=== PATIENT | male | born 1960 | race Caucasian/White ===

== ENCOUNTER 2020-05-03 01:46 | Emergency (ER) | payer OTHER, SELFPAY ==
--- NOTE | 2020-05-03 01:54 | ECG_ITS ---
Test Reason : CHEST PAIN Blood Pressure : / mmHG Vent. Rate : 058 BPM Atrial Rate : 058 BPM P-R Int : 184 ms QRS Dur : 100 ms QT Int : 420 ms P-R-T Axes : 035 017 009 degrees QTc Int : 412 ms Sinus bradycardia Incomplete right bundle branch block Borderline ECG When compared to the previous EKG of 02 july 2016, no significant changes Referred By: Laurie Ibanez Electronically Signed By:DEMARCO DIANE
--- NOTE | 2020-05-03 01:54 | CT_ITS ---
EXAMINATION: CT ABDOMEN AND PELVIS WITH CONTRAST CLINICAL INFORMATION: Epigastric pain COMPARISON: Ultrasound 10/28/2019 TECHNIQUE: Multidetector volumetric images were obtained from the superior aspect of the liver through the pubic symphysis following administration 85 mL of Omnipaque 350 intravenous contrast. Sagittal and coronal reformatted images were obtained on the technologist's workstation. Oral contrast: No This CT examination was performed using dose optimization techniques as appropriate, variously including the following: *Automated exposure control *Adjustment of mA and/or kV according to patient size (this includes techniques or standardized protocols for targeted exams where dose is matched to indication/reason for exam; i.e. extremities or head) *Use of iterative reconstruction technique DLP: 1037 mGy-cm FINDINGS: LUNG BASES: Right basilar atelectasis. The visualized cardiac structures are unremarkable. LIVER, GALLBLADDER, AND BILIARY TREE: The liver is normal in size and shape with decreased attenuation. No biliary ductal dilatation is present. There is a 1.7 cm cyst in segment 7 of the liver at the dome. The gallbladder is unremarkable with no evidence of radiopaque gallstones, gallbladder wall thickening, or obvious pericholecystic inflammatory changes. PANCREAS: There is a soft tissue mass in the retroperitoneum abutting the pancreatic head/uncinate. This could be of pancreatic origin or galileo. The mass measures 6 x 4.3 x 5.5 cm. There is lack of a fat plane between the mass in the main portal vein. There is greater than 180 degrees of abutment of the celiac axis and superior mesenteric artery. There is also loss of fat plane with the splenic vein. The pancreatic body and tail are unremarkable. No ductal dilatation. No atrophy. SPLEEN: Unremarkable. ADRENAL GLANDS: Unremarkable. KIDNEYS AND URETERS: The kidneys are normal in size, shape, and attenuation. No hydronephrosis, hydroureter, or calculi seen. No perinephric stranding. Left lower pole renal cyst. BLADDER: Unremarkable. GASTROINTESTINAL TRACT: The stomach is unremarkable. Normal caliber small bowel. There is no obstruction. No colonic wall thickening or acute inflammatory change. Colonic diverticulosis without diverticulitis. ABDOMINAL WALL: No significant hernia is appreciated. LYMPH NODES: Retroperitoneal mass as described above. Otherwise, there is no retroperitoneal lymphadenopathy. No mesenteric lymphadenopathy. VASCULAR: Normal caliber aorta. Minimal atherosclerotic calcifications. PELVIC VISCERA: The prostate and seminal vesicles are unremarkable. OSSEOUS STRUCTURES: No acute or suspicious osseous abnormality. Mild degenerative changes of the spine. CT/CT abdomen pelvis w con IMPRESSION: There is a prominent soft tissue mass in the retroperitoneum which could either be of pancreatic origin or galileo. This abuts the pancreatic head/uncinate. There is encasement of adjacent vasculature. This is highly suspicious for neoplasm. Hepatic steatosis. Cysts of the liver and left kidney. This critical result was discussed with Laurie Ibanez MD by telephone at 05/03/2020 4:35 AM and it was ascertained that the content and urgency of the report was understood at the time of direct communication.
[2020-05-03 02:07] VITALS: BP 125/69; PULSE 57; RESP 98; TEMP 36.7; BMI 23.7
[2020-05-03 03:13] VITALS: BP 113/64; PULSE 74; RESP 15; TEMP 37.1; O2SAT 98
[2020-05-03 03:27] LABS: Basophils Percent Auto 0.3 % (0-2); Eosinophils Absolute Auto 0.2 X10*3/uL (0.0-0.4); Eosinophils Percent Auto 1.4 % (0-4); Hematocrit 41.5 % (42-52); Hemoglobin 13.5 g/dl (14.0-18.0); Imm Gran Abs Auto 0.03 X10*3/uL (0.00-0.03); Imm Gran Pct Auto 0.3 % (0.0-0.4); Lymphocytes Absolute Auto 2.2 X10*3/uL (1.2-4.9); Lymphocytes Percent Auto 20.7 % (20-40); Mean Corpuscular HGB Conc 32.5 g/dl (31.0-36.0); Mean Corpuscular Hemoglobin 31.8 pg (27.0-33.0); Mean Corpuscular Volume 97.6 fL (80-98); Mean Platelet Volume 9.5 fL (9.4-12.4); Monocytes Absolute Auto 0.8 X10*3/uL (0.1-1.2); Monocytes Percent Auto 7.3 % (2-11); Neutrophils Absolute Auto 7.3 X10*3/uL (2.0-8.3); Platelet Count 264 X10*3/uL (160-400); Red Blood Count 4.25 X10*6/uL (4.60-5.80); Red Cell Distribution Width 11.9 % (11.0-16.0); White Blood Count 10.5 X10*3/uL (4.8-10.8)
[2020-05-03 03:29] LABS: MANUAL DIFF FLAG NO
--- NOTE | 2020-05-03 03:30 | XR_ITS ---
EXAMINATION: XR CHEST CLINICAL INFORMATION: Cough COMPARISON: 05/16/2017 TECHNIQUE: Frontal view of the chest was obtained. FINDINGS: Cardiac leads overlie the chest. The lungs are well expanded. There is no focal consolidation, edema, or effusion. No pneumothorax. The cardiomediastinal silhouette is within normal limits. No acute osseous abnormality. XR/XR chest 1V IMPRESSION: No acute pulmonary finding.
--- NOTE | 2020-05-03 03:40 | ED.ABDPAIN ---
HPI - Abdominal Pain General Chief Complaint: Abdominal Pain Stated Complaint: epigastric pain Time Seen by Provider: 05/03/20 01:54 Source: patient and independent living advisor Mode of arrival: EMS History of Present Illness HPI narrative: This is 60-year-old male with history of GERD, depression, who is brought in by EMS after they were called for patient having onset of right upper quadrant/epigastric sharp pain at approximately 2:30 a.m. that radiated across the abdomen was not associated with nausea, vomiting, fevers, or chills. Patient states that this is happen previously after taking a pill but denies any shortness of breath, chest pain/palpitations, urinary symptoms. He describes the pain as 12/11 Related Data Home Medications Medication Instructions Recorded Confirmed aspirin 81 mg tablet,delayed 81 mg PO DAILY 04/11/20 04/11/20 release cyclobenzaprine 10 mg tablet 10 mg PO BEDTIME 04/11/20 04/11/20 fluoxetine 20 mg capsule 20 mg PO DAILY 04/11/20 04/11/20 hydroxyzine pamoate 50 mg capsule 50 mg PO Q6H cap 04/11/20 04/11/20 nabumetone 750 mg tablet 750 mg PO BID 04/11/20 04/11/20 omega-3 fatty acids 1,000 mg 1,000 mg PO DAILY 04/11/20 04/11/20 capsule omeprazole 40 mg capsule,delayed 40 mg PO BID 04/11/20 04/11/20 release propylene glycol 0.6 % eye drops 1 drp OPHTHALMIC (EYE) DAILY PRN 04/11/20 04/11/20 quetiapine 400 mg tablet,extended 400 mg PO BEDTIME 04/11/20 04/11/20 release 24 hr triamcinolone acetonide 0.025 % 1 appl TOPICAL DAILY 04/11/20 04/11/20 topical cream Allergies Allergy/AdvReac Type Severity Reaction Status Date / Time shrimp [SHRIMP] Allergy Severe THROAT Verified 04/11/20 09:57 CLOSES Review of Systems Review of Systems Pertinent positives and negatives as stated in HPI 10 point review of systems is otherwise negative. Physical Exam Vital Signs: Vital Signs: Last Vital Signs Temp 97.8 F 05/03/20 06:26 Pulse 76 05/03/20 06:26 Resp 18 05/03/20 06:26 BP 146/74 H 05/03/20 06:26 Pulse Ox 97 05/03/20 06:26 Body Mass Index 23.7 VITAL SIGNS: Reviewed. GENERAL: Well developed, well nourished, in no acute distress. NOSE: Nares patent bilateral OROPHARYNX: no oral lesions noted, posterior pharynx clear and non-erythematous without noted tonsillar enlargement/erythema/exudates NECK: Supple, no adenopathy LUNGS: Normal breath sounds. No adventitious sounds or accessory muscle use. SpO2<98> CARDIOVASCULAR: Regular rate and rhythm without noted murmurs, no JVD or lower extremity edema. ABDOMEN: Obese, Soft, non-tender, non-distended with bowel sounds. Voluntary guarding, No rigidity, No palpable masses or hernias noted NEUROLOGIC: Alert and oriented x 4. Course Course Course Narrative: This is a 60-year-old male with history and clinical presentation suggestive of possible gastritis, gallbladder pathology, pancreatitis and will rule out cardiac or pulmonary etiologies as well. On review of all investigations there is no evidence of systemic infection, but there is a noted chronic transaminemia. Although the high sensitivity troponin is noted to be 5.2 there are no acute findings on the EKG, however will follow up a 2nd troponin. CT scan is read as a 5 cm pancreatic mass that is encasing vasculature. Case management consult placed to ensure patient has appointments with both his primary care provider as well as a surgeon at either [facility] or possibly [facility]. Reevaluation(s) Reevaluation #1: With the assistance of the analytical consultant I informed the patient of his new diagnosis in the presence of his who was on speaker phone. All questions and concerns were addressed and they understand the next steps that will be taken in terms of case management assisting in setting up appointments with both his primary care provider, Dr. Amato, as well as a surgical services tech for this type of mass. Time: 07:05 MDM - Abdominal Pain Lab Data Result diagrams: 05/03/20 03:22 05/03/20 03:21 Labs: Lab Results 05/03/20 05/03/20 05/03/20 Range/Units 03:21 03:22 03:22 WBC 10.5 (4.8-10.8) X10*3/uL RBC 4.25 L (4.60-5.80) X10*6/uL Hgb 13.5 L (14.0-18.0) g/dl Hct 41.5 L (42-52) % MCV 97.6 (80-98) fL MCH 31.8 (27.0-33.0) pg MCHC 32.5 (31.0-36.0) g/dl RDW 11.9 (11.0-16.0) % Plt Count 264 (160-400) X10*3/uL MPV 9.5 (9.4-12.4) fL Immature Gran % (Auto) 0.3 (0.0-0.4) % Neut % (Auto) 70.0 (45-73) % Lymph % (Auto) 20.7 (20-40) % [place] % (Auto) 7.3 (2-11) % Eos % (Auto) 1.4 (0-4) % Baso % (Auto) 0.3 (0-2) % Lymph # (Auto) 2.2 (1.2-4.9) X10*3/uL [place] # (Auto) 0.8 (0.1-1.2) X10*3/uL Eos # (Auto) 0.2 (0.0-0.4) X10*3/uL Baso # (Auto) 0.0 (0.0-0.2) X10*3/uL Abs Immat Gran (auto) 0.03 (0.00-0.03) X10*3/uL Absolute Neuts (auto) 7.3 (2.0-8.3) X10*3/uL Absolute Nucleated RBC 0.000 (0.0-0.012) X10*3/uL Nucleated RBC % (auto) 0.0 (0.0-0.2) /100WBC Sodium 136 (135-145) mmol/L Potassium 3.9 (3.3-5.1) mmol/l Chloride 99 (96-108) mmol/L Carbon Dioxide 30 H (22-29) mmol/L Anion Gap 11 L (12-20) BUN 12 (9-16) mg/dL Creatinine 0.93 (0.5-1.4) mg/dL Estim Creat Clear Calc 81.7 Estimated GFR > 60 Random Glucose 194 H (60-115) mg/dL Calcium 9.1 (8.4-10.2) mg/dL Magnesium 2.0 (1.6-2.6) mg/dL Total Bilirubin 0.6 (0.0-1.0) mg/dL AST 67 H (5-37) U/L ALT 87 H (0-40) U/L Alkaline Phosphatase 121 H (39-117) U/L Troponin I High Sens 5.2 (<3.5-35.0) ng/L Total Protein 7.0 (6.5-8.0) g/dL Albumin 3.7 (3.5-5.0) g/dL Lipase 15 (8-78) U/L ECG Data Attestation: I personally reviewed and interpreted this ECG as follows: Prior ECG tracings: available for review (07/02/2016) Interpretation: Sinus bradycardia, HR-58, no evidence of acute ischemia, DE/QTC are within normal limits. Discharge Plan Discharge Clinical Impression: Pancreatic mass Patient Disposition: Home, Self-Care Additional Instructions: Please do not hesitate to return to the emergency department for any acute worsening of your symptoms. Prescriptions: No Action Systane Balance 0.6 % drops 1 drp ophthalmic (eye) DAILY PRNRF: 0 nabumetone 750 mg tablet 750 mg PO BID RF: 0 omeprazole 40 mg capsule,delayed release(DR/EC) 40 mg PO BID RF: 0 triamcinolone acetonide 0.025 % cream 1 appl topical DAILY RF: 0 aspirin [Adult Aspirin Regimen] 81 mg tablet,delayed release (DR/EC) 81 mg PO DAILY RF: 0 quetiapine 400 mg tablet extended release 24 hr 400 mg PO BEDTIME RF: 0 fluoxetine 20 mg capsule 20 mg PO DAILY RF: 0 hydroxyzine pamoate 50 mg capsule 50 mg PO Q6H RF: 0 cyclobenzaprine 10 mg tablet 10 mg PO BEDTIME RF: 0 omega-3 fatty acids [Fish Oil Concentrate] 1,000 mg capsule 1,000 mg PO DAILY RF: 0 Referrals: Keke Barnes MD [Physician] - 2 days (Co management of patient with new diagnosis pancreatic mass.) Print Language: Hebrew [facility] Past Medical History Source: nursing notes reviewed Medical History Depression with anxiety Diverticulosis GERD (gastroesophageal reflux disease) High serum ferritin Impaired glucose tolerance Transaminitis Surgical History History of tonsillectomy Family History Family History Father No problems noted. Mother No problems noted. Maternal Grandmother Diabetes Hypertension Stroke Maternal Grandfather CVD (cardiovascular disease) Maternal Aunt Chronic mental illness Maternal Aunt Psychosis Family/Other FH: mental illness Social History Social History Smoking Status: Current every day smoker Smoked in Last 30 Days: No Use of substances other than those prescribed or required for medical reasons: No Advance Directives: No
[2020-05-03 03:55] LABS: Alanine Aminotransferase 87 U/L (0-40); Albumin Level 3.7 g/dL (3.5-5.0); Alkaline Phosphatase 121 U/L (39-117); Anion Gap 11 (12-20); Aspartate Amino Transferase 67 U/L (5-37); Bilirubin Total 0.6 mg/dL (0.0-1.0); Blood Urea Nitrogen 12 mg/dL (9-16); Calcium 9.1 mg/dL (8.4-10.2); Carbon Dioxide 30 mmol/L (22-29); Chloride 99 mmol/L (96-108); Creatinine Clr Calc Pharmacy 81.7; Estimated Glomerular Filt Rate > 60; Glucose Random 194 mg/dL (60-115); Lipase 15 U/L (8-78); Potassium 3.9 mmol/l (3.3-5.1); Sodium 136 mmol/L (135-145)
[2020-05-03 03:59] LABS: Troponin-I High Sensitivity 5.2 ng/L (<3.5-35.0)
[2020-05-03] MEDS: iohexoL 350 MG/ML 100 ML INFUS..BTL 85 ML IV (04:18)
[2020-05-03 04:29] VITALS: BP 130/59; PULSE 85; RESP 16; TEMP 36.6; O2SAT 94
[2020-05-03 06:26] VITALS: BP 146/74; PULSE 76; RESP 18; TEMP 36.6; O2SAT 97
[2020-05-03 07:20] LABS: Troponin-I High Sensitivity 4.3 ng/L (<3.5-35.0)
[2020-05-03 07:44] VITALS: BP 127/72; PULSE 82; RESP 16; TEMP 36.6; O2SAT 97
--- NOTE | 2020-05-03 09:00 | MHC.CM.ED ---
Received case management consult overnight. Patient came to the ER due to elevated LFT's. Work up shows a pancreatic mass. Follow up care has been requested from MD. Patient's PCP is Dr Lm Gómez. She is on vacation next week. Office was able to arrange an appointment with Dr Ramires on 05/07/2020 at 230pm. ER provider documentation and CT faxed to PCP's office. 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 Patient lives with his , ambulates with a cane and had no services prior to coming to the hospital. Patient denies having a HCP. Information provided. Patient not interested in completing one at this time. Appointment information provided. Also explained PCP's office will arrange follow up with necessary surgeon. Patient verbalized understanding and stated his daughter will transport him home. Patient stated he feels he can safely go home. LAZARO Avalos and ELISA Jolley aware. Continue to monitor for d/c needs.
== END 2020-05-03 09:46 | disposition home or self-care (01) ==
PROVIDERS: Emergency Provider Student in an Organized Health Care Education/Training Program
DX: K86.9 Disease of pancreas, unspecified (principal); R10.13 Epigastric pain; Z79.899 Other long term (current) drug therapy; F17.200 Nicotine dependence, unspecified, uncomplicated; Z71.6 Tobacco abuse counseling
CPT/HCPCS: 36415; 71045; 74177; 80053; 83690; 83735; 84484; 85025; 93005; 99284; Q9967

== ENCOUNTER 2020-05-10 13:32 | Outpatient (REF) | payer OTHER, SELFPAY | END 2020-05-10 13:33 | disposition home or self-care (01) | LOC: HO.LAB 13:32 | PROVIDERS: PCP Internal Medicine; Visit Provider Internal Medicine | DX: Z20.828 Contact with and (suspected) exposure to other viral communicable diseases (principal) | CPT/HCPCS: 36415; C9803; U0003 ==

== ENCOUNTER 2020-05-16 08:12 | Outpatient (REF) | payer OTHER, SELFPAY ==
[2020-05-16 09:55] LABS: MANUAL DIFF FLAG NO
[2020-05-16 10:08] LABS: Basophils Absolute Auto 0.1 X10*3/uL (0.0-0.2); Basophils Percent Auto 0.7 % (0-2); Eosinophils Absolute Auto 0.3 X10*3/uL (0.0-0.4); Eosinophils Percent Auto 3.7 % (0-4); Hematocrit 43.9 % (42-52); Hemoglobin 14.5 g/dl (14.0-18.0); Imm Gran Abs Auto 0.03 X10*3/uL (0.00-0.03); Imm Gran Pct Auto 0.4 % (0.0-0.4); Lymphocytes Absolute Auto 2.6 X10*3/uL (1.2-4.9); Mean Corpuscular Hemoglobin 32.1 pg (27.0-33.0); Mean Corpuscular Volume 97.1 fL (80-98); Mean Platelet Volume 10.8 fL (9.4-12.4); Monocytes Absolute Auto 0.6 X10*3/uL (0.1-1.2); Monocytes Percent Auto 6.7 % (2-11); Neutrophils Absolute Auto 4.8 X10*3/uL (2.0-8.3); Neutrophils Percent Auto 57.5 % (45-73); Platelet Count 335 X10*3/uL (160-400); Red Blood Count 4.52 X10*6/uL (4.60-5.80); Red Cell Distribution Width 11.7 % (11.0-16.0); White Blood Count 8.3 X10*3/uL (4.8-10.8)
[2020-05-16 10:57] LABS: Alanine Aminotransferase 86 U/L (0-40); Alkaline Phosphatase 136 U/L (39-117); Anion Gap 15 (12-20); Aspartate Amino Transferase 51 U/L (5-37); Bilirubin Total 0.7 mg/dL (0.0-1.0); Blood Urea Nitrogen 9 mg/dL (9-16); Calcium 8.9 mg/dL (8.4-10.2); Carbon Dioxide 29 mmol/L (22-29); Chloride 101 mmol/L (96-108); Estimated Glomerular Filt Rate > 60; Glucose Fasting 122 mg/dL (60-99); Iron 137 mcg/dL (45-160); Percent Iron Saturation 49 % (15-50); Potassium 4.5 mmol/l (3.3-5.1); Sodium 140 mmol/L (135-145); Total Iron Binding Capacity 281 mcg/dL (228-428); Total Protein 7.4 g/dL (6.5-8.0); Unsaturated Iron Binding 144 ug/dL
[2020-05-16 11:14] LABS: HBS Num1 0.05 mIU/mL (0-7.99); HBc Num1 0.37 S/CO (0.00-0.79); Hepatitis B Core Antibody Nonreactive (Nonreactive); ~HepC Num1 0.19 S/CO (0.00-0.79); ~Hepatitis B Surface Antibody NONREACTIVE (Nonreactive); ~Hepatitis C Antibody Nonreactive (Nonreactive)
[2020-05-16 11:18] LABS: Ferritin 597 ng/mL (20-250)
[2020-05-16 11:29] LABS: HBsAGNum1 0.17 S/CO (0.00-0.99); Hepatitis A Antibody IgM 0.36 Index (0-0.79); Hepatitis B Surface Antigen Negative (Negative); ~Hepatitis A Antibody IgM Nonreactive (Nonreactive)
== END 2020-05-16 08:13 | disposition home or self-care (01) ==
LOC: HO.LAB 08:12
PROVIDERS: PCP Internal Medicine; Visit Provider Internal Medicine
DX: R79.89 Other specified abnormal findings of blood chemistry (principal); R73.02 Impaired glucose tolerance (oral); R74.01 Elevation of levels of liver transaminase levels
CPT/HCPCS: 36415; 80053; 81256; 82728; 83540; 85025; 86704; 86706; 86709; 86803; 87340

== ENCOUNTER → 2020-05-17 09:31 | Outpatient (BNVA) | payer OTHER, SELFPAY | PROVIDERS: PCP Internal Medicine; Visit Provider Surgery | DX: K86.89 Other specified diseases of pancreas (principal) | CPT/HCPCS: 99202 ==

== ENCOUNTER 2020-05-28 10:30 | Outpatient (REF) | payer OTHER, SELFPAY | END 2020-05-28 10:31 | disposition home or self-care (01) | LOC: HO.LAB 10:30 | PROVIDERS: Visit Provider Internal Medicine | DX: Z20.822 Contact with and (suspected) exposure to COVID-19 (principal) | CPT/HCPCS: 36415; C9803; U0003 ==

== ENCOUNTER → 2020-06-28 10:19 | Outpatient (BNVA) | payer OTHER, SELFPAY | PROVIDERS: PCP Internal Medicine; Referring Provider Internal Medicine; Visit Provider Internal Medicine Gastroenterology ==

== ENCOUNTER → 2020-07-04 09:44 | Outpatient (BNVA) | payer OTHER, SELFPAY | PROVIDERS: PCP Internal Medicine; Visit Provider Physician Assistant | DX: M75.80 Other shoulder lesions, unspecified shoulder (principal) | CPT/HCPCS: 20610; 99212; J1020 ==

== ENCOUNTER 2020-07-17 09:55 | Outpatient (REF) | payer OTHER, SELFPAY ==
[2020-07-17 11:27] LABS: Alanine Aminotransferase 18 U/L (0-40); Albumin Level 4.1 g/dL (3.5-5.0); Alkaline Phosphatase 146 U/L (39-117); Anion Gap 12 (12-20); Aspartate Amino Transferase 19 U/L (5-37); Bilirubin Total 0.9 mg/dL (0.0-1.0); Blood Urea Nitrogen 11 mg/dL (9-16); Calcium 9.3 mg/dL (8.4-10.2); Carbon Dioxide 34 mmol/L (22-29); Chloride 101 mmol/L (96-108); Estimated Glomerular Filt Rate > 60; Glucose Fasting 104 mg/dL (60-99); Potassium 5.2 mmol/L (3.3-5.1); Sodium 142 mmol/L (135-145); Total Protein 7.5 g/dL (6.5-8.0)
== END 2020-07-17 09:56 | disposition home or self-care (01) ==
LOC: HO.LAB 09:55
PROVIDERS: PCP Internal Medicine; Visit Provider Internal Medicine
DX: R73.02 Impaired glucose tolerance (oral) (principal)
CPT/HCPCS: 36415; 80053

== ENCOUNTER 2020-10-05 09:20 | Emergency (ER) | payer OTHER, SELFPAY ==
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
[2020-10-05 09:38] VITALS: BP 121/90; PULSE 99; RESP 18; TEMP 36.8; O2SAT 96; BMI 39.5
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
[2020-10-05 14:00] VITALS: BP 122/89; PULSE 89; RESP 18; O2SAT 96
--- NOTE | 2020-10-05 14:10 | PC.NURSE ---
waiting to interperter for dc
== END 2020-10-05 14:34 | disposition home or self-care (01) ==
PROVIDERS: Emergency Provider Emergency Medicine Emergency Medical Services; PCP Internal Medicine
DX: S13.4XXA Sprain of ligaments of cervical spine, initial encounter (principal); S43.402A Unspecified sprain of left shoulder joint, initial encounter; V43.52XA Car driver injured in collision with other type car in traffic accident, initial encounter; Y93.89 Activity, other specified; Y92.414 Local residential or business street as the place of occurrence of the external cause; Y99.9 Unspecified external cause status
CPT/HCPCS: 70450; 71045; 72125; 73030; 99284

== ENCOUNTER → 2020-10-25 08:04 | Outpatient (BNVA) | payer OTHER, SELFPAY | PROVIDERS: PCP Internal Medicine; Referring Provider Internal Medicine; Visit Provider Internal Medicine Gastroenterology | DX: K76.0 Fatty (change of) liver, not elsewhere classified (principal); K86.89 Other specified diseases of pancreas; K21.9 Gastro-esophageal reflux disease without esophagitis; K57.90 Diverticulosis of intestine, part unspecified, without perforation or abscess without bleeding; R74.01 Elevation of levels of liver transaminase levels; R79.89 Other specified abnormal findings of blood chemistry; C82.89 Other types of follicular lymphoma, extranodal and solid organ sites; Z86.010 Personal history of colon polyps | CPT/HCPCS: 99212 ==

== ENCOUNTER 2020-12-17 11:40 | Outpatient (REF) | payer OTHER, SELFPAY | END 2020-12-17 11:41 | disposition home or self-care (01) | LOC: HO.LAB 11:40 | PROVIDERS: PCP Internal Medicine; Visit Provider Internal Medicine | DX: Z20.822 Contact with and (suspected) exposure to COVID-19 (principal) | CPT/HCPCS: C9803; U0003; U0005 ==

== ENCOUNTER 2021-01-21 08:29 | Outpatient (REF) | payer OTHER, SELFPAY | END 2021-01-21 08:30 | disposition home or self-care (01) | LOC: HO.LAB 08:29 | PROVIDERS: PCP Internal Medicine; Visit Provider Internal Medicine | DX: Z20.822 Contact with and (suspected) exposure to COVID-19 (principal) | CPT/HCPCS: C9803; U0003; U0005 ==

== ENCOUNTER → 2021-01-23 13:03 | Outpatient (REF) | payer OTHER, SELFPAY | LOC: HO.SL 13:03 | PROVIDERS: PCP Internal Medicine; Visit Provider Internal Medicine | DX: R40.0 Somnolence (principal) | CPT/HCPCS: 95806 ==

== ENCOUNTER → 2021-02-12 11:09 | Outpatient (BNVA) | payer OTHER, SELFPAY | PROVIDERS: PCP Internal Medicine; Visit Provider Internal Medicine Pulmonary Disease | DX: G47.33 Obstructive sleep apnea (adult) (pediatric) (principal) | CPT/HCPCS: 99202 ==

== ENCOUNTER → 2021-02-28 08:21 | Outpatient (BNVA) | payer OTHER, SELFPAY | PROVIDERS: PCP Internal Medicine; Referring Provider Internal Medicine; Visit Provider Internal Medicine Gastroenterology | DX: K76.0 Fatty (change of) liver, not elsewhere classified (principal); K86.89 Other specified diseases of pancreas; K21.9 Gastro-esophageal reflux disease without esophagitis; K57.90 Diverticulosis of intestine, part unspecified, without perforation or abscess without bleeding; E66.01 Morbid (severe) obesity due to excess calories; R74.01 Elevation of levels of liver transaminase levels; C82.89 Other types of follicular lymphoma, extranodal and solid organ sites; Z86.010 Personal history of colon polyps | CPT/HCPCS: 99212 ==

== ENCOUNTER 2021-05-21 08:53 | Outpatient (REF) | payer OTHER, SELFPAY ==
[2021-05-21 09:18] LABS: Hematocrit 38.7 % (42.0-52.0); Hemoglobin 12.6 g/dl (14.0-18.0); Mean Corpuscular HGB Conc 32.6 g/dl (31.0-36.0); Mean Corpuscular Hemoglobin 32.4 pg (27.0-33.0); Mean Corpuscular Volume 99.5 fL (80.0-98.0); Mean Platelet Volume 8.9 fL (9.4-12.4); Platelet Count 282 X10*3/uL (160-400); Red Blood Count 3.89 X10*6/uL (4.60-5.80); Red Cell Distribution Width 12.2 % (11.0-16.0); White Blood Count 4.5 X10*3/uL (4.8-10.8)
[2021-05-21 09:45] LABS: Alanine Aminotransferase 47 U/L (0-40); Alkaline Phosphatase 134 U/L (39-117); Anion Gap 12 (12-20); Aspartate Amino Transferase 56 U/L (5-37); Bilirubin Total 0.5 mg/dL (0.0-1.0); Blood Urea Nitrogen 11 mg/dL (9-16); Calcium 9.5 mg/dL (8.4-10.2); Carbon Dioxide 32 mmol/L (22-29); Chloride 102 mmol/L (96-108); Cholesterol 182 mg/dL; Estimated Glomerular Filt Rate > 60; Glucose Fasting 148 mg/dL (60-99); HDL Cholesterol 36 mg/dL; LDL Cholesterol Calculated 105 mg/dl; Sodium 141 mmol/L (135-145); Total Protein 7.2 g/dL (6.5-8.0); Triglycerides 208 mg/dL
[2021-05-21 10:50] LABS: Band Neutrophils Percent 1 % (3-5); Basophils Percent Manual 1 % (0-2); Eosinophils Absolute Manual 0.1 X10*3/uL (0.0-0.4); Eosinophils Percent Manual 2 % (0-4); Hypochromasia 1+ (5-14) /OIF; Lymphocytes Absolute Manual 0.3 X10*3/uL (1.2-4.9); Lymphocytes Percent Manual 6 % (20-40); Monocytes Absolute Manual 0.4 X10*3/uL (0.1-1.2); Monocytes Percent Manual 9 % (2-11); Neutrophils Absolute Manual 3.7 X10*3/uL (2.0-8.3); Neutrophils Percent Manual 81 % (45-73); Platelet Estimate NORMAL (NORMAL); Platelet Morphology Comment NORMAL; RBC Morphology NOTED
== END 2021-05-21 08:54 | disposition home or self-care (01) ==
LOC: HO.LAB 08:53
PROVIDERS: PCP Internal Medicine; Visit Provider Internal Medicine
DX: E66.01 Morbid (severe) obesity due to excess calories (principal); E78.5 Hyperlipidemia, unspecified; D64.9 Anemia, unspecified
CPT/HCPCS: 36415; 80053; 80061; 85007; 85027

== ENCOUNTER → 2021-08-29 07:59 | Outpatient (BNVA) | payer OTHER, SELFPAY | PROVIDERS: PCP Internal Medicine; Referring Provider Internal Medicine; Visit Provider Internal Medicine Gastroenterology | DX: K21.9 Gastro-esophageal reflux disease without esophagitis (principal); K76.0 Fatty (change of) liver, not elsewhere classified; R79.89 Other specified abnormal findings of blood chemistry; R74.01 Elevation of levels of liver transaminase levels; K57.90 Diverticulosis of intestine, part unspecified, without perforation or abscess without bleeding; E66.01 Morbid (severe) obesity due to excess calories; Z68.39 Body mass index [BMI] 39.0-39.9, adult; Z86.010 Personal history of colon polyps | CPT/HCPCS: 99212 ==

== ENCOUNTER → 2021-10-07 13:48 | Outpatient (BNVA) | payer OTHER, SELFPAY | PROVIDERS: PCP Internal Medicine; Visit Provider Internal Medicine Pulmonary Disease | DX: G47.33 Obstructive sleep apnea (adult) (pediatric) (principal); Z99.89 Dependence on other enabling machines and devices | CPT/HCPCS: 99212 ==

== ENCOUNTER 2022-01-07 07:43 | Outpatient (REF) | payer OTHER, SELFPAY ==
--- NOTE | 2022-01-07 07:58 | ECG_ITS ---
Test Reason : qt check Blood Pressure : / mmHG Vent. Rate : 074 BPM Atrial Rate : 074 BPM P-R Int : 180 ms QRS Dur : 098 ms QT Int : 388 ms P-R-T Axes : 031 -02 014 degrees QTc Int : 430 ms Normal sinus rhythm Normal ECG When compared with ECG of 03-MAY-2020 01:57, No significant change was found Referred By: Luis Alberto Carter Electronically Signed By:JOEY SILVA
[2022-01-07 08:14] LABS: MANUAL DIFF FLAG NO
[2022-01-07 08:49] LABS: Basophils Percent Auto 0.6 % (0-2); Eosinophils Absolute Auto 0.2 X10*3/uL (0.0-0.4); Eosinophils Percent Auto 3.7 % (0-4); Hematocrit 39.2 % (42.0-52.0); Imm Gran Abs Auto 0.03 X10*3/uL (0.00-0.03); Imm Gran Pct Auto 0.6 % (0.0-0.4); Lymphocytes Absolute Auto 1.4 X10*3/uL (1.2-4.9); Lymphocytes Percent Auto 25.3 % (20-40); Mean Corpuscular HGB Conc 33.2 g/dl (31.0-36.0); Mean Corpuscular Volume 99.5 fL (80.0-98.0); Mean Platelet Volume 9.2 fL (9.4-12.4); Monocytes Absolute Auto 0.4 X10*3/uL (0.1-1.2); Monocytes Percent Auto 7.2 % (2-11); Neutrophils Absolute Auto 3.4 x10*3/uL (2.0-8.3); Neutrophils Percent Auto 62.6 % (45-73); Platelet Count 296 X10*3/uL (160-400); Red Blood Count 3.94 X10*6/uL (4.60-5.80); White Blood Count 5.4 X10*3/uL (4.8-10.8)
[2022-01-07 09:25] LABS: Estimated Average Glucose 123 mg/dL; Hemoglobin A1c % 5.9 %
[2022-01-07 09:27] LABS: Alanine Aminotransferase 64 U/L (0-40); Albumin Level 3.9 g/dL (3.5-5.0); Alkaline Phosphatase 131 U/L (39-117); Anion Gap 14 (12-20); Aspartate Amino Transferase 45 U/L (5-37); Bilirubin Total 0.5 mg/dL (0.0-1.0); Blood Urea Nitrogen 11 mg/dL (9-16); Carbon Dioxide 30 mmol/L (22-29); Chloride 103 mmol/L (96-108); Estimated Glomerular Filt Rate > 60; Glucose Random 141 mg/dL (60-115); Potassium 4.8 mmol/L (3.3-5.1); Sodium 142 mmol/L (135-145); Total Protein 7.6 g/dL (6.5-8.0)
[2022-01-07 09:30] LABS: Alanine Aminotransferase 64 U/L (0-40); Albumin Level 3.9 g/dL (3.5-5.0); Alkaline Phosphatase 130 U/L (39-117); Anion Gap 15 (12-20); Aspartate Amino Transferase 46 U/L (5-37); Bilirubin Total 0.5 mg/dL (0.0-1.0); Blood Urea Nitrogen 11 mg/dL (9-16); Calcium 8.9 mg/dL (8.4-10.2); Carbon Dioxide 28 mmol/L (22-29); Chloride 102 mmol/L (96-108); Cholesterol 178 mg/dL; Estimated Glomerular Filt Rate > 60; Glucose Fasting 137 mg/dL (60-99); HDL Cholesterol 41 mg/dL; LDL Cholesterol Calculated 109 mg/dl; Potassium 4.3 mmol/L (3.3-5.1); Sodium 141 mmol/L (135-145); Total Protein 7.6 g/dL (6.5-8.0); Triglycerides 144 mg/dL
[2022-01-07 09:40] LABS: Vitamin D 25-OH Total 18.4 ng/mL (>30)
[2022-01-08 11:07] LABS: Prolactin 9.1 ng/mL (2.0-18.0)
[2022-01-08 11:18] LABS: Syphilis Screen Nonreactive (Nonreactive)
[2022-01-10 12:27] LABS: Vitamin B1 6 nmol/L (8-30)
== END 2022-01-07 07:44 | disposition home or self-care (01) ==
LOC: HO.LAB 07:43
PROVIDERS: PCP Internal Medicine; Visit Provider Psychiatry & Neurology Child & Adolescent Psychiatry
DX: Z00.00 Encounter for general adult medical examination without abnormal findings (principal); E55.9 Vitamin D deficiency, unspecified; E66.9 Obesity, unspecified; C82.89 Other types of follicular lymphoma, extranodal and solid organ sites; F43.10 Post-traumatic stress disorder, unspecified; F43.21 Adjustment disorder with depressed mood
CPT/HCPCS: 36415; 80053; 80061; 82306; 82746; 83036; 84146; 84425; 84443; 85025; 86780; 93005

== ENCOUNTER 2022-02-06 07:28 | Outpatient (REF) | payer OTHER, SELFPAY ==
[2022-02-06 08:10] LABS: MANUAL DIFF FLAG NO
[2022-02-06 08:47] LABS: Basophils Absolute Auto 0.1 X10*3/uL (0.0-0.2); Basophils Percent Auto 0.8 % (0-2); Eosinophils Absolute Auto 0.2 X10*3/uL (0.0-0.4); Eosinophils Percent Auto 3.2 % (0-4); Hematocrit 39.5 % (42.0-52.0); Hemoglobin 12.9 g/dl (14.0-18.0); Imm Gran Abs Auto 0.02 X10*3/uL (0.00-0.03); Imm Gran Pct Auto 0.3 % (0.0-0.4); Lymphocytes Absolute Auto 1.3 X10*3/uL (1.2-4.9); Mean Corpuscular HGB Conc 32.7 g/dl (31.0-36.0); Mean Corpuscular Hemoglobin 31.8 pg (27.0-33.0); Mean Corpuscular Volume 97.3 fL (80.0-98.0); Mean Platelet Volume 9.1 fL (9.4-12.4); Monocytes Absolute Auto 0.4 X10*3/uL (0.1-1.2); Monocytes Percent Auto 7.1 % (2-11); Neutrophils Absolute Auto 4.2 x10*3/uL (2.0-8.3); Neutrophils Percent Auto 67.6 % (45-73); Platelet Count 287 X10*3/uL (160-400); Red Blood Count 4.06 X10*6/uL (4.60-5.80); White Blood Count 6.2 X10*3/uL (4.8-10.8)
[2022-02-06 09:03] LABS: Alanine Aminotransferase 35 U/L (0-40); Albumin Level 4.1 g/dL (3.5-5.0); Alkaline Phosphatase 135 U/L (39-117); Anion Gap 14 (12-20); Aspartate Amino Transferase 32 U/L (5-37); Bilirubin Total 0.7 mg/dL (0.0-1.0); Blood Urea Nitrogen 14 mg/dL (9-16); Calcium 9.4 mg/dL (8.4-10.2); Carbon Dioxide 31 mmol/L (22-29); Chloride 100 mmol/L (96-108); Cholesterol 193 mg/dL; Estimated Glomerular Filt Rate > 60; Glucose Random 142 mg/dL (60-115); HDL Cholesterol 40 mg/dL; LDL Cholesterol Calculated 124 mg/dl; Potassium 4.2 mmol/L (3.3-5.1); Sodium 141 mmol/L (135-145); Total Protein 7.6 g/dL (6.5-8.0); Triglycerides 148 mg/dL
[2022-02-06 09:14] LABS: Estimated Average Glucose 120 mg/dL; Hemoglobin A1c % 5.8 %
[2022-02-06 09:28] LABS: Thyroid Stimulating Hormone 2.71 uIU/mL (0.32-4.0)
[2022-02-06 10:10] LABS: Folate 13.4 ng/mL (> or = 4.0)
[2022-02-10 09:07] LABS: Vitamin B1 11 nmol/L (8-30)
== END 2022-02-06 07:29 | disposition home or self-care (01) ==
LOC: HO.LAB 07:28
PROVIDERS: PCP Internal Medicine; Visit Provider Psychiatry & Neurology Child & Adolescent Psychiatry
DX: F43.10 Post-traumatic stress disorder, unspecified (principal); F33.42 Major depressive disorder, recurrent, in full remission
CPT/HCPCS: 36415; 80053; 80061; 82746; 83036; 84146; 84425; 84443; 85025

== ENCOUNTER → 2022-02-27 08:13 | Outpatient (BNVA) | payer OTHER, SELFPAY | PROVIDERS: PCP Internal Medicine; Visit Provider Internal Medicine Gastroenterology | DX: K57.90 Diverticulosis of intestine, part unspecified, without perforation or abscess without bleeding (principal); R74.8 Abnormal levels of other serum enzymes; K76.0 Fatty (change of) liver, not elsewhere classified; K86.89 Other specified diseases of pancreas; K21.9 Gastro-esophageal reflux disease without esophagitis; R79.89 Other specified abnormal findings of blood chemistry; R74.01 Elevation of levels of liver transaminase levels; Z86.010 Personal history of colon polyps | CPT/HCPCS: 99212 ==

== ENCOUNTER 2022-06-11 08:30 | Outpatient (REF) | payer OTHER, SELFPAY ==
--- NOTE | 2022-06-11 08:34 | EMG_ITS ---
Please see scanned EMG / Nerve Conduction Report. MTDD
== END 2022-06-11 08:31 | disposition home or self-care (01) ==
LOC: HO.NEURO 08:30
PROVIDERS: PCP Internal Medicine; Visit Provider Internal Medicine
DX: R20.0 Anesthesia of skin (principal)
CPT/HCPCS: 95885; 95910

== ENCOUNTER 2022-06-30 10:57 | Outpatient (REF) | payer OTHER, SELFPAY ==
--- NOTE | ~2022-06-30 | XR_ITS ---
EXAMINATION: XR KNEE STANDING, BILATERAL XR KNEE, RIGHT CLINICAL INFORMATION: Pain in right knee. COMPARISON: None TECHNIQUE: AP bilateral knee standing. Right knee 2 views. FINDINGS: AP BILATERAL KNEE: There is mild reduction in medial compartment joint space both knees. The lateral compartment joint space is maintained normal. No bony erosive changes. No loose body seen. RIGHT KNEE: The lateral and patellofemoral views reveal maintained joint space. There is periarticular spurring. No loose bodies. No abnormal joint effusion. XR/XR knee standing BI IMPRESSION: Mild degenerative changes medial compartment both knees and patellofemoral compartment right knee. No visible acute fracture, dislocation or subluxation seen.
--- NOTE | ~2022-06-30 | XR_ITS ---
EXAMINATION: XR KNEE STANDING, BILATERAL XR KNEE, RIGHT CLINICAL INFORMATION: Pain in right knee. COMPARISON: None TECHNIQUE: AP bilateral knee standing. Right knee 2 views. FINDINGS: AP BILATERAL KNEE: There is mild reduction in medial compartment joint space both knees. The lateral compartment joint space is maintained normal. No bony erosive changes. No loose body seen. RIGHT KNEE: The lateral and patellofemoral views reveal maintained joint space. There is periarticular spurring. No loose bodies. No abnormal joint effusion. XR/XR knee RT 2V IMPRESSION: Mild degenerative changes medial compartment both knees and patellofemoral compartment right knee. No visible acute fracture, dislocation or subluxation seen.
== END 2022-06-30 10:58 | disposition home or self-care (01) ==
LOC: HO.HOSX 10:57
PROVIDERS: Visit Provider Physician Assistant
DX: M17.11 Unilateral primary osteoarthritis, right knee (principal)
CPT/HCPCS: 20610; 73560; 73565; 99212; J1040

== ENCOUNTER 2022-07-23 07:41 | Outpatient (REF) | payer OTHER, SELFPAY ==
--- NOTE | ~2022-07-23 | XR_ITS ---
EXAMINATION: XR SHOULDER, RIGHT CLINICAL INFORMATION: M25.511 - Pain in right shoulder COMPARISON: Radiographs right shoulder 06/28/2018 TECHNIQUE: Right shoulder is imaged in 3 views. FINDINGS: No fracture, dislocation, destructive process. The acromioclavicular alignment is normal. No visible rotator cuff calcifications. Again, there are moderate osteoarthritic changes right glenohumeral joint with joint narrowing and spurring, osteophyte greatest inferomedial humeral head. XR/XR shoulder RT min 2V IMPRESSION: Osteoarthritis glenohumeral joint, similar to 2019 No visible rotator cuff calcifications.
== END 2022-07-23 07:42 | disposition home or self-care (01) ==
LOC: HO.HOSX 07:41
PROVIDERS: Visit Provider Physician Assistant
DX: M19.011 Primary osteoarthritis, right shoulder (principal)
CPT/HCPCS: 20610; 73030; 99212; J1040

== ENCOUNTER → 2022-08-07 08:24 | Outpatient (BNVA) | payer OTHER, SELFPAY | PROVIDERS: PCP Internal Medicine; Visit Provider Internal Medicine Gastroenterology | DX: K76.0 Fatty (change of) liver, not elsewhere classified (principal); K86.89 Other specified diseases of pancreas; K21.9 Gastro-esophageal reflux disease without esophagitis; K57.90 Diverticulosis of intestine, part unspecified, without perforation or abscess without bleeding; R79.89 Other specified abnormal findings of blood chemistry; R74.01 Elevation of levels of liver transaminase levels; Z86.010 Personal history of colon polyps | CPT/HCPCS: 99212 ==

== ENCOUNTER 2022-12-10 09:55 | Outpatient (AMB) | payer OTHER, SELFPAY ==
[2022-12-10 09:58] VITALS: BMI 38.8
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
== END 2022-12-10 10:43 | disposition home or self-care (01) ==
PROVIDERS: PCP Internal Medicine; Visit Provider Physician Assistant
DX: M19.011 Primary osteoarthritis, right shoulder (principal)
CPT/HCPCS: 20610; 99213

== ENCOUNTER → 2022-12-10 09:55 | Outpatient (BNVA) | payer OTHER, SELFPAY | PROVIDERS: PCP Internal Medicine; Visit Provider Physician Assistant | DX: M17.11 Unilateral primary osteoarthritis, right knee (principal) | CPT/HCPCS: 20610; 99212; J1040 ==

== ENCOUNTER → 2023-01-12 08:00 | Outpatient (REF) | payer OTHER, SELFPAY ==
--- NOTE | 2023-01-12 08:04 | ECG_ITS ---
Test Reason : qtc check Blood Pressure : / mmHG Vent. Rate : 075 BPM Atrial Rate : 075 BPM P-R Int : 172 ms QRS Dur : 092 ms QT Int : 372 ms P-R-T Axes : 042 -03 007 degrees QTc Int : 415 ms Normal sinus rhythm Normal ECG When compared with ECG of 07-JAN-2022 07:58, No significant change was found Referred By: Luis Alberto Carter Electronically Signed By:JOEY SILVA
== END ==
LOC: HO.CARD 08:00
PROVIDERS: PCP Internal Medicine; Visit Provider Psychiatry & Neurology Child & Adolescent Psychiatry
DX: Z13.6 Encounter for screening for cardiovascular disorders (principal)
CPT/HCPCS: 93005

== ENCOUNTER 2023-02-05 08:34 | Outpatient (AMB) | payer OTHER, SELFPAY ==
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
[2023-02-05 08:48] VITALS: BP 127/70; PULSE 91; BMI 38.8
== END 2023-02-05 09:53 | disposition home or self-care (01) ==
PROVIDERS: PCP Internal Medicine; Visit Provider Internal Medicine Gastroenterology
DX: R74.8 Abnormal levels of other serum enzymes (principal); K76.0 Fatty (change of) liver, not elsewhere classified; Z86.010 Personal history of colon polyps; K86.89 Other specified diseases of pancreas; K21.9 Gastro-esophageal reflux disease without esophagitis; R74.01 Elevation of levels of liver transaminase levels; K57.90 Diverticulosis of intestine, part unspecified, without perforation or abscess without bleeding
CPT/HCPCS: 99214

== ENCOUNTER 2023-02-05 08:34 | Outpatient (REF) | payer OTHER, SELFPAY ==
[2023-02-05 11:48] LABS: Alanine Aminotransferase 49 U/L (0-40); Alkaline Phosphatase 128 U/L (39-117); Anion Gap 15 (12-20); Aspartate Amino Transferase 42 U/L (5-37); Bilirubin Total 0.6 mg/dL (0.0-1.0); Blood Urea Nitrogen 9 mg/dL (9-16); Calcium 9.3 mg/dL (8.4-10.2); Carbon Dioxide 27 mmol/L (22-29); Chloride 101 mmol/L (96-108); Estimated Glomerular Filt Rate > 60; Glucose Random 131 mg/dL (60-115); Potassium 3.8 mmol/L (3.3-5.1); Sodium 139 mmol/L (135-145); Total Protein 7.7 g/dL (6.5-8.0)
[2023-02-05 12:12] LABS: Vitamin D 25-OH Total 35.5 ng/mL (>30)
== END 2023-02-05 08:35 | disposition home or self-care (01) ==
LOC: HO.LAB 08:34
PROVIDERS: PCP Internal Medicine; Visit Provider Internal Medicine Gastroenterology
DX: R74.8 Abnormal levels of other serum enzymes (principal); K76.0 Fatty (change of) liver, not elsewhere classified; K86.89 Other specified diseases of pancreas; K21.9 Gastro-esophageal reflux disease without esophagitis; R74.01 Elevation of levels of liver transaminase levels; K57.90 Diverticulosis of intestine, part unspecified, without perforation or abscess without bleeding; Z86.010 Personal history of colon polyps; Z79.899 Other long term (current) drug therapy
CPT/HCPCS: 36415; 80053; 82306; 85027; 86021; 86364; 86381; 99212

== ENCOUNTER 2023-03-09 08:24 | Outpatient (AMB) | payer OTHER, SELFPAY ==
[2023-03-09 08:25] VITALS: BMI 38.8
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
== END 2023-03-09 08:39 | disposition home or self-care (01) ==
PROVIDERS: PCP Internal Medicine; Visit Provider Physician Assistant
DX: M17.11 Unilateral primary osteoarthritis, right knee (principal)
CPT/HCPCS: 20610

== ENCOUNTER → 2023-03-09 08:24 | Outpatient (BNVA) | payer OTHER, SELFPAY | PROVIDERS: PCP Internal Medicine; Visit Provider Physician Assistant | DX: M17.11 Unilateral primary osteoarthritis, right knee (principal) | CPT/HCPCS: 20610; J1040 ==

== ENCOUNTER 2023-03-12 11:03 | Outpatient (AMB) | payer OTHER, SELFPAY ==
[2023-03-12 11:08] VITALS: BP 118/67; PULSE 67; O2SAT 97; BMI 39.6
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
== END 2023-03-12 11:37 | disposition home or self-care (01) ==
PROVIDERS: PCP Internal Medicine; Visit Provider Internal Medicine Pulmonary Disease
DX: G47.33 Obstructive sleep apnea (adult) (pediatric) (principal)
CPT/HCPCS: 99213

== ENCOUNTER → 2023-03-12 11:03 | Outpatient (BNVA) | payer OTHER, SELFPAY | PROVIDERS: PCP Internal Medicine; Visit Provider Internal Medicine Pulmonary Disease | DX: G47.33 Obstructive sleep apnea (adult) (pediatric) (principal); Z99.89 Dependence on other enabling machines and devices | CPT/HCPCS: 99212 ==

== ENCOUNTER 2023-04-03 08:24 | Day surgery (SDC) | payer OTHER, SELFPAY ==
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
[2023-04-03 08:41] VITALS: BMI 35.1
[2023-04-03 09:02] VITALS: BP 145/78; PULSE 69; RESP 16; TEMP 36; O2SAT 98
[2023-04-03] MEDS: Lactated Ringers 1,000 ML 100 ML IVCONT (09:03)
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
--- NOTE | 2023-04-03 10:38 | W.PM.OPN ---
Operative Note Operative Note Date of Service: 04/03/23 Narrative: FLEXIBLE TRANSORAL UPPER GASTROINTESTINAL ENDOSCOPY WITH BIOPSIES AND COLONOSCOPY TILL CECUM WITH SNARE POLYPECTOMY AND HEMOCLIP PLACEMENT Pre-op diagnosis: Surveillance for colon polyps, GERD Post-op diagnosis: GERD, hiatal hernia, gastritis, colon polyps, diverticulosis, hemorrhoids? Endoscopist:? Charles Stephen MD Anesthesia:?MAC UPPER ENDOSCOPY Consent: Indications for the procedure and potential complications of bleeding, perforation, reaction to medications and missed diagnosis were discussed with the patient and informed consent was obtained. Instrument: Olympus GIF H 190 mid size upper endoscope Monitoring: Vital signs and clinical assessment, continuous EKG monitoring, Pulse oximetry, Carbon Dioxide monitoring and blood pressure monitoring were done throughout the procedure. Procedure: The patient was placed in the left lateral decubitis position and pre-procedure medications were administered and a bite block was placed. The endoscope was inserted into the mouth and advanced under direct vision to the third part of duodenum. A careful inspection was made as the upper endoscope was withdrawn including a retroflexed examination of the proximal stomach; Findings and interventions are described below. Findings: Larynx: Normal Esophagus: Tortuous esophagus with increased tertiary contractions without stricture or ring. GE junction at 38 cms, small hiatal hernia 38 to 40 cms. No varices, esophagitis or Hooks?s. Stomach: Mild gastric erythema. Biopsies were obtained. Grade 2 flap valve on retroflexed examination of the cardia. Duodenum: Normal bulb and descending duodenum Intervention: Biopsies as noted above COLONOSCOPY PROCEDURE NOTE Consent: Indications for the procedure and potential complications of bleeding, perforation, reaction to medications and missed diagnosis were discussed with the patient and informed consent was obtained. Instrument: Olympus CF H 190 L variable stiffness adult colonoscope Monitoring: Vital signs and clinical assessment, intermittent blood pressure monitoring, continuous EKG monitoring, Pulse oximetry and Carbon Dioxide monitoring were done throughout the procedure. Colon withdrawl time was 22 minutes. Procedure: The patient was placed in the left lateral decubitis position and pre-procedure medications were administered. After a digital rectal examination of the ano-rectum, the video colonoscope was inserted into the rectum and advanced through the colon to the cecum. The colonoscope was slowly withdrawn in a retrograde panoramic fashion and the colon mucosa was carefully examined including a retroflexed view of the rectum. Findings and interventions are described below. Procedure Difficulty: : Without difficulty Findings: Terminal Ileum: Not evaluated Cecum: Normal Ascending Colon: A 5-6 mm sessile polyp - removed with a cold snare. Two 12-15 mm sessile polyps - removed with a hot snare Transverse Colon: A 12-15 mm sessile polyp in the proximal TC - removed with a hot snare. Polypectomy site was closed with 1 hemoclip. Descending Colon: Moderate diverticulosis Sigmoid Colon: A few 5-8 mm diminutive appearing polyps in the rectosigmoid. Moderate diverticulosis Rectum: A 4-5 mm sessile polyp - removed with a cold snare Ano-rectum: Moderate internal hemorrhoids Colon preparation: Good - After some irrigation Impression and Post Procedure Diagnosis: Endoscopy Findings: ESOPHAGUS: Tortuous esophagus with increased tertiary contractions without stricture or ring. GE junction at 38 cms, small hiatal hernia 38 to 40 cms. No varices, esophagitis or Hooks?s. STOMACH: Mild gastritis Colonoscopy Findings: Two small and three medium sized polyps removed Moderate diverticulosis seen in the left colon Moderate hemorrhoids on retroflexed exam. Plan: Await pathology results Patient has an appointment on 04/23/23 in the GI [facility] with Charles Stephen M.D. Repeat Colonoscopy interval based on path results - in 3-5 years if polyps are adenomatous and 10 years if polyps are hyperplastic. Above findings were reviewed with the patient and colon polyps and diverticulosis handouts were given in the discharge area
[2023-04-03 11:25] VITALS: BP 153/97; PULSE 77; RESP 18; TEMP 36.4; O2SAT 98
[2023-04-03 11:40] VITALS: BP 160/86; PULSE 70; RESP 17; TEMP 36.3; O2SAT 96
== END 2023-04-03 12:10 | disposition home or self-care (01) ==
PROVIDERS: PCP Internal Medicine; Visit Provider Internal Medicine Gastroenterology
PROC: (CPT 45385; principal; 2023-04-03 10:30)
DX: Z12.11 Encounter for screening for malignant neoplasm of colon (principal); Z86.010 Personal history of colon polyps; D12.2 Benign neoplasm of ascending colon; D12.3 Benign neoplasm of transverse colon; D12.8 Benign neoplasm of rectum; K57.30 Diverticulosis of large intestine without perforation or abscess without bleeding; K64.8 Other hemorrhoids; K21.9 Gastro-esophageal reflux disease without esophagitis; K29.50 Unspecified chronic gastritis without bleeding; K44.9 Diaphragmatic hernia without obstruction or gangrene; K76.0 Fatty (change of) liver, not elsewhere classified; R74.8 Abnormal levels of other serum enzymes; K86.89 Other specified diseases of pancreas; R74.01 Elevation of levels of liver transaminase levels; I10 Essential (primary) hypertension; R73.02 Impaired glucose tolerance (oral); F41.8 Other specified anxiety disorders; E66.01 Morbid (severe) obesity due to excess calories; Z68.38 Body mass index [BMI] 38.0-38.9, adult; Z79.82 Long term (current) use of aspirin; Z79.899 Other long term (current) drug therapy
CPT/HCPCS: 45385; 43239; 88305; 88342; J2704

== ENCOUNTER → 2023-04-03 08:24 | Outpatient (BNV) | payer OTHER, SELFPAY | PROVIDERS: PCP Internal Medicine; Visit Provider Internal Medicine Gastroenterology | DX: Z12.11 Encounter for screening for malignant neoplasm of colon (principal); Z86.010 Personal history of colon polyps; D12.2 Benign neoplasm of ascending colon; D12.3 Benign neoplasm of transverse colon; K21.9 Gastro-esophageal reflux disease without esophagitis; K29.70 Gastritis, unspecified, without bleeding | CPT/HCPCS: 43239; 45385 ==

== ENCOUNTER 2023-04-23 09:13 | Outpatient (AMB) | payer OTHER, SELFPAY ==
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
[2023-04-23 09:50] VITALS: BP 110/71; PULSE 80; BMI 38.0
== END 2023-04-23 10:24 | disposition home or self-care (01) ==
PROVIDERS: PCP Internal Medicine; Visit Provider Internal Medicine Gastroenterology
DX: R74.8 Abnormal levels of other serum enzymes (principal); Z86.010 Personal history of colon polyps; K76.0 Fatty (change of) liver, not elsewhere classified; E66.01 Morbid (severe) obesity due to excess calories; K86.89 Other specified diseases of pancreas; K21.9 Gastro-esophageal reflux disease without esophagitis; R74.01 Elevation of levels of liver transaminase levels; K57.90 Diverticulosis of intestine, part unspecified, without perforation or abscess without bleeding
CPT/HCPCS: 99214

== ENCOUNTER → 2023-04-23 09:13 | Outpatient (BNVA) | payer OTHER, SELFPAY | PROVIDERS: PCP Internal Medicine; Visit Provider Internal Medicine Gastroenterology | DX: K76.0 Fatty (change of) liver, not elsewhere classified (principal); K86.89 Other specified diseases of pancreas; K21.9 Gastro-esophageal reflux disease without esophagitis; K57.90 Diverticulosis of intestine, part unspecified, without perforation or abscess without bleeding; E66.01 Morbid (severe) obesity due to excess calories; R74.8 Abnormal levels of other serum enzymes; R74.01 Elevation of levels of liver transaminase levels; Z86.010 Personal history of colon polyps; Z68.38 Body mass index [BMI] 38.0-38.9, adult | CPT/HCPCS: 99212 ==

== ENCOUNTER 2023-05-13 16:12 | Outpatient (AMB) | payer OTHER, SELFPAY ==
[2023-05-13 16:14] VITALS: BP 132/76; PULSE 62; RESP 17; O2SAT 98; BMI 37.9
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
== END 2023-05-13 17:44 | disposition home or self-care (01) ==
PROVIDERS: PCP Internal Medicine; Visit Provider Internal Medicine
DX: R10.9 Unspecified abdominal pain (principal); R11.2 Nausea with vomiting, unspecified; F33.0 Major depressive disorder, recurrent, mild; K21.9 Gastro-esophageal reflux disease without esophagitis
CPT/HCPCS: 99214

== ENCOUNTER 2023-07-09 12:18 | Outpatient (AMB) | payer OTHER, SELFPAY ==
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
[2023-07-09 12:53] VITALS: BMI 37.9
== END 2023-07-09 13:34 | disposition home or self-care (01) ==
PROVIDERS: PCP Internal Medicine; Visit Provider Physician Assistant
DX: M17.11 Unilateral primary osteoarthritis, right knee (principal)
CPT/HCPCS: 20610; 99213

== ENCOUNTER → 2023-07-09 12:18 | Outpatient (BNVA) | payer OTHER, SELFPAY | PROVIDERS: PCP Internal Medicine; Visit Provider Physician Assistant | DX: M17.11 Unilateral primary osteoarthritis, right knee (principal) | CPT/HCPCS: 20610; 99212; J1040 ==

== ENCOUNTER 2023-08-26 13:59 | Outpatient (AMB) | payer OTHER, SELFPAY ==
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
[2023-08-26 14:10] VITALS: BP 130/78; BMI 37.7
== END 2023-08-26 14:48 | disposition home or self-care (01) ==
PROVIDERS: PCP Internal Medicine; Visit Provider Internal Medicine
DX: M54.16 Radiculopathy, lumbar region (principal); C82.89 Other types of follicular lymphoma, extranodal and solid organ sites; F33.0 Major depressive disorder, recurrent, mild; K21.9 Gastro-esophageal reflux disease without esophagitis; F41.1 Generalized anxiety disorder
CPT/HCPCS: 99214

== ENCOUNTER 2023-09-07 09:14 | Outpatient (AMB) | payer OTHER, SELFPAY ==
[2023-09-07 10:18] VITALS: BP 140/80; PULSE 72; TEMP 36.1; O2SAT 96; BMI 38.3
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
== END 2023-09-07 12:16 | disposition home or self-care (01) ==
PROVIDERS: PCP Internal Medicine; Visit Provider Registered Nurse Emergency
DX: M54.9 Dorsalgia, unspecified (principal); R21 Rash and other nonspecific skin eruption
CPT/HCPCS: 81003; 99214

== ENCOUNTER 2023-09-07 10:59 | Outpatient (REF) | payer OTHER, SELFPAY ==
--- NOTE | ~2023-09-07 | XR_ITS ---
EXAMINATION: XR LUMBOSACRAL SPINE CLINICAL INFORMATION: Dorsalgia COMPARISON: 12/14/2018 TECHNIQUE: Three views of the lumbosacral spine. FINDINGS: When comparison is made to the 2019 study, there's been some minimal change with a slight increase in endplate changes. For example, a small osteophyte at the anterosuperior endplate of L3 appears slightly increased compared to prior. Mild disc space narrowing remains at L5-S1 with slight increase in sclerosis. A new superior endplate osteophyte is noted anteriorly at L1. XR/XR lumbar spine 2-3V IMPRESSION: Mild degenerative changes in the lumbar spine with slight increase in endplate changes when compared to 2019.
== END 2023-09-07 11:00 | disposition home or self-care (01) ==
LOC: HO.HMGCX 10:59
PROVIDERS: PCP Internal Medicine; Visit Provider Registered Nurse Emergency
DX: M54.9 Dorsalgia, unspecified (principal)
CPT/HCPCS: 72100

== ENCOUNTER 2023-10-16 08:53 | Outpatient (REF) | payer OTHER, SELFPAY ==
[2023-10-16 10:06] LABS: Alanine Aminotransferase 24 U/L (0-40); Albumin Level 4.1 g/dL (3.5-5.0); Alkaline Phosphatase 104 U/L (39-117); Aspartate Amino Transferase 24 U/L (5-37); Bilirubin Direct 0.2 mg/dL (0.0-0.5); Bilirubin Total 0.6 mg/dL (0.0-1.0); Total Protein 8.1 g/dL (6.5-8.0)
[2023-10-19 21:52] LABS: Myeloperoxidase Antibody <1.0 AI; Proteinase 3 PR3 Antibodies <1.0 AI
[2023-10-20 22:57] LABS: Prot Elec - Albumin 3.9 g/dL (3.8-4.8); Prot Elec - Alpha1 0.3 g/dL (0.2-0.3); Prot Elec - Alpha2 0.7 g/dL (0.5-0.9); Prot Elec - Beta 1 0.5 g/dL (0.4-0.6); Prot Elec - Beta 2 0.5 g/dL (0.2-0.5); Prot Elec - Gamma 1.5 g/dL (0.8-1.7); Prot Elec - Total Protein 7.4 g/dL (6.1-8.1)
== END 2023-10-16 08:54 | disposition home or self-care (01) ==
LOC: HO.LAB 08:53
PROVIDERS: PCP Internal Medicine; Visit Provider Internal Medicine Gastroenterology
DX: R74.01 Elevation of levels of liver transaminase levels (principal); R74.8 Abnormal levels of other serum enzymes
CPT/HCPCS: 36415; 80076; 84165; 86021

== ENCOUNTER 2023-10-22 08:50 | Outpatient (AMB) | payer OTHER, SELFPAY ==
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
[2023-10-22 09:03] VITALS: BP 112/72; PULSE 74; O2SAT 97; BMI 36.9
== END 2023-10-22 09:29 | disposition home or self-care (01) ==
PROVIDERS: PCP Internal Medicine; Visit Provider Internal Medicine Gastroenterology
DX: K57.90 Diverticulosis of intestine, part unspecified, without perforation or abscess without bleeding (principal); R74.01 Elevation of levels of liver transaminase levels; K21.9 Gastro-esophageal reflux disease without esophagitis; K76.0 Fatty (change of) liver, not elsewhere classified; Z86.010 Personal history of colon polyps; C82.89 Other types of follicular lymphoma, extranodal and solid organ sites; R74.8 Abnormal levels of other serum enzymes; R10.9 Unspecified abdominal pain
CPT/HCPCS: 99213

== ENCOUNTER → 2023-10-22 08:50 | Outpatient (BNVA) | payer OTHER, SELFPAY | PROVIDERS: PCP Internal Medicine; Visit Provider Internal Medicine Gastroenterology | DX: K57.90 Diverticulosis of intestine, part unspecified, without perforation or abscess without bleeding (principal); K21.9 Gastro-esophageal reflux disease without esophagitis; K76.0 Fatty (change of) liver, not elsewhere classified; R74.01 Elevation of levels of liver transaminase levels; R74.8 Abnormal levels of other serum enzymes; R10.9 Unspecified abdominal pain; C82.89 Other types of follicular lymphoma, extranodal and solid organ sites; Z86.010 Personal history of colon polyps | CPT/HCPCS: 99212 ==

== ENCOUNTER 2023-11-11 08:46 | Outpatient (AMB) | payer OTHER, SELFPAY ==
[2023-11-11 09:15] VITALS: BP 108/68; PULSE 84; O2SAT 98; BMI 36.9
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
== END 2023-11-11 09:41 | disposition home or self-care (01) ==
PROVIDERS: PCP Internal Medicine; Visit Provider Internal Medicine
DX: K21.9 Gastro-esophageal reflux disease without esophagitis (principal); F33.0 Major depressive disorder, recurrent, mild; F41.1 Generalized anxiety disorder; N52.1 Erectile dysfunction due to diseases classified elsewhere
CPT/HCPCS: 99214; G2211

== ENCOUNTER 2023-11-11 10:06 | Outpatient (REF) | payer OTHER, SELFPAY ==
[2023-11-16 12:43] LABS: Testosterone, Free 35.4 pg/mL (35.0-155.0); Testosterone, Total 279 ng/dL (250-1100)
== END 2023-11-11 10:07 | disposition home or self-care (01) ==
LOC: HO.LAB 10:06
PROVIDERS: PCP Internal Medicine; Visit Provider Internal Medicine
DX: N52.9 Male erectile dysfunction, unspecified (principal)
CPT/HCPCS: 36415; 84402; 84403

== ENCOUNTER 2023-12-14 08:38 | Outpatient (REF) | payer OTHER, SELFPAY ==
--- NOTE | ~2023-12-14 | XR_ITS ---
EXAMINATION: XR SHOULDER, RIGHT CLINICAL INFORMATION: Pain. COMPARISON: Prior radiographs, most recently 07/23/2022. TECHNIQUE: AP neutral, scapular Y, and axillary views of the right shoulder are submitted. FINDINGS: Bony alignment and mineralization are normal. The glenohumeral joint is intact, with joint space narrowing and marked peripheral osteophyte formation. The acromioclavicular and coracoclavicular intervals are normal. A tiny distal acromial undersurface osteophyte is seen, and there is mild cortical irregularity of the greater tuberosity of the proximal right humerus. No soft tissue calcification or foreign body is seen. There is no right pneumothorax. XR/XR shoulder RT min 2V IMPRESSION: 1. There is marked osteoarthritic change of the right glenohumeral joint. 2. Findings suggest right rotator cuff impingement, without calos calcific tendinitis noted. Electronically signed by: Ty Turner MD 01/12/2024 05:51 PM EDT RP
== END 2023-12-14 08:39 | disposition home or self-care (01) ==
LOC: HO.HOSX 08:38
PROVIDERS: Visit Provider Physician Assistant
DX: M25.512 Pain in left shoulder (principal); M75.81 Other shoulder lesions, right shoulder
CPT/HCPCS: 20610; 73030; 99212; J1010

== ENCOUNTER 2023-12-14 10:29 | Outpatient (AMB) | payer OTHER, SELFPAY ==
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
[2023-12-14 11:10] VITALS: BMI 36.9
== END 2023-12-14 12:02 | disposition home or self-care (01) ==
PROVIDERS: PCP Internal Medicine; Visit Provider Physician Assistant
DX: M75.80 Other shoulder lesions, unspecified shoulder (principal)
CPT/HCPCS: 20610; 99213

== ENCOUNTER → 2024-03-16 08:07 | Outpatient (REF) | payer OTHER, SELFPAY ==
--- NOTE | 2024-03-16 08:14 | ECG_ITS ---
Test Reason : qtc check Blood Pressure : / mmHG Vent. Rate : 073 BPM Atrial Rate : 073 BPM P-R Int : 170 ms QRS Dur : 092 ms QT Int : 372 ms P-R-T Axes : 042 -01 013 degrees QTc Int : 409 ms Normal sinus rhythm Normal ECG When compared with ECG of 12-JAN-2023 08:02, No significant change was found Referred By: Luis Alberto Carter Electronically Signed By:Binh Virk
[2024-03-16 08:28] LABS: MANUAL DIFF FLAG NO
[2024-03-16 08:36] LABS: Basophils Percent Auto 0.5 % (0-2); Eosinophils Absolute Auto 0.2 X10*3/uL (0.0-0.4); Eosinophils Percent Auto 2.4 % (0-4); Hematocrit 41.6 % (42.0-52.0); Hemoglobin 13.9 g/dl (14.0-18.0); Imm Gran Abs Auto 0.02 X10*3/uL (0.00-0.03); Imm Gran Pct Auto 0.3 % (0.0-0.4); Lymphocytes Absolute Auto 1.8 X10*3/uL (1.2-4.9); Lymphocytes Percent Auto 27.3 % (20-40); Mean Corpuscular HGB Conc 33.4 g/dl (31.0-36.0); Mean Corpuscular Hemoglobin 33.1 pg (27.0-33.0); Mean Platelet Volume 9.1 fL (9.4-12.4); Monocytes Absolute Auto 0.5 X10*3/uL (0.1-1.2); Monocytes Percent Auto 7.5 % (2-11); Neutrophils Absolute Auto 4.1 x10*3/uL (2.0-8.3); Platelet Count 276 X10*3/uL (160-400); Red Cell Distribution Width 12.2 % (11.0-16.0); White Blood Count 6.6 X10*3/uL (4.8-10.8)
[2024-03-16 08:44] LABS: Estimated Average Glucose 111 mg/dL; Hemoglobin A1c % 5.5 % (<6.0); Total Hemoglobin (HGBA1C) 3619.4998 umol/L
[2024-03-16 08:59] LABS: Alanine Aminotransferase 23 U/L (0-40); Alkaline Phosphatase 117 U/L (39-117); Anion Gap 14 (12-20); Aspartate Amino Transferase 25 U/L (5-37); Bilirubin Total 0.6 mg/dL (0.0-1.0); Blood Urea Nitrogen 12 mg/dL (9-16); C Reactive Protein 3.28 mg/dL (< or = 0.50); Calcium 9.4 mg/dL (8.4-10.2); Carbon Dioxide 33 mmol/L (22-29); Chloride 100 mmol/L (96-108); Cholesterol 186 mg/dL (<200); Estimated Glomerular Filt Rate > 60; Glucose Random 136 mg/dL (60-115); HDL Cholesterol 42 mg/dL (>40); LDL Cholesterol Calculated 103 mg/dL (<100); Potassium 4.7 mmol/L (3.3-5.1); Sodium 142 mmol/L (135-145); Total Protein 7.7 g/dL (6.5-8.0); Triglycerides 207 mg/dL (<150)
[2024-03-16 09:14] LABS: Thyroid Stimulating Hormone 3.74 uIU/mL (0.32-4.0)
[2024-03-18 07:34] LABS: Prolactin 6.5 ng/mL (2.0-18.0)
== END ==
LOC: HO.CARD 08:07
PROVIDERS: PCP Internal Medicine; Visit Provider Psychiatry & Neurology Child & Adolescent Psychiatry
DX: Z13.6 Encounter for screening for cardiovascular disorders (principal); F41.1 Generalized anxiety disorder
CPT/HCPCS: 36415; 80053; 80061; 83036; 84146; 84443; 85025; 86140; 93005

== ENCOUNTER → 2024-03-16 08:14 | Outpatient (BNV) | payer OTHER, SELFPAY | PROVIDERS: PCP Internal Medicine; Visit Provider Internal Medicine Cardiovascular Disease | DX: F41.1 Generalized anxiety disorder (principal) | CPT/HCPCS: 93010 ==

== ENCOUNTER 2024-04-08 08:24 | Outpatient (AMB) | payer OTHER, SELFPAY ==
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
[2024-04-08 08:33] VITALS: BMI 36.9
== END 2024-04-08 09:10 | disposition home or self-care (01) ==
PROVIDERS: PCP Internal Medicine; Visit Provider Physician Assistant
DX: M17.11 Unilateral primary osteoarthritis, right knee (principal)
CPT/HCPCS: 20610; 99213

== ENCOUNTER → 2024-04-08 08:24 | Outpatient (BNVA) | payer OTHER, SELFPAY | PROVIDERS: PCP Internal Medicine; Visit Provider Physician Assistant | DX: M17.11 Unilateral primary osteoarthritis, right knee (principal) | CPT/HCPCS: 20610; 99212; J1010; J2003 ==

== ENCOUNTER 2024-04-21 09:02 | Outpatient (AMB) | payer OTHER, SELFPAY ==
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
[2024-04-21 09:18] VITALS: BP 128/68; PULSE 242; BMI 15.4
== END 2024-04-21 09:54 | disposition home or self-care (01) ==
PROVIDERS: PCP Internal Medicine; Visit Provider Internal Medicine Gastroenterology
DX: K57.90 Diverticulosis of intestine, part unspecified, without perforation or abscess without bleeding (principal); R74.01 Elevation of levels of liver transaminase levels; K21.9 Gastro-esophageal reflux disease without esophagitis; K86.89 Other specified diseases of pancreas; K76.0 Fatty (change of) liver, not elsewhere classified; Z86.0100 Personal history of colon polyps, unspecified; R74.8 Abnormal levels of other serum enzymes; R10.9 Unspecified abdominal pain
CPT/HCPCS: 99213

== ENCOUNTER → 2024-04-21 09:02 | Outpatient (BNVA) | payer OTHER, SELFPAY | PROVIDERS: PCP Internal Medicine; Visit Provider Internal Medicine Gastroenterology | DX: K57.90 Diverticulosis of intestine, part unspecified, without perforation or abscess without bleeding (principal); K21.9 Gastro-esophageal reflux disease without esophagitis; K86.89 Other specified diseases of pancreas; K76.0 Fatty (change of) liver, not elsewhere classified; R74.01 Elevation of levels of liver transaminase levels; R74.8 Abnormal levels of other serum enzymes; R10.9 Unspecified abdominal pain; Z86.0100 Personal history of colon polyps, unspecified | CPT/HCPCS: 99212 ==

== ENCOUNTER 2024-06-22 14:16 | Outpatient (AMB) | payer OTHER, SELFPAY ==
--- OUTSIDE RECORDS SUMMARY | 2024-06-22 14:28 | XMS_ITS | Clinical Summary ---
Author Organization [facility], Address [address] [place] [address] Phone Care Team Providers Care Electrical Accessories I Assembler Name Role Phone Keke Barnes MD Primary Care Provider [phone] Allergies Active Allergy Reactions Criticality Noted Date Comments Other Itching High 08/28/2020 SHRIMP Throat closes Medications aspirin (ST BESSIE) 81 MG EC tablet Take 81 mg by mouth 1 (one) time each day Active FLUoxetine (PROzac) 20 MG capsule Take 20 mg by mouth 1 (one) time each day Active lisinopril (PRINIVIL,ZESTR IL) 2.5 MG tablet Take 2.5 mg by mouth 1 (one) time each day Active [place]-3 Fatty Acids (OMEGA-3 CF PO) Take by mouth daily Active omeprazole (PriLOSEC) [address] capsule Take 40 mg by mouth 2 (two) times a day Do not crush or chew. Active QUEtiapine (SEROquel) 400 MG tablet Take 400 mg by mouth every night Active cyclobenzaprine (FLEXERIL) 10 MG tablet TAKE 1 TABLET BY MOUTH AT BEDTIME 90 DAYS 1 Active hydrOXYzine (VISTARIL) 50 MG capsule TOME MAUREEN C PSULA DENZEL VECES AL D A 1 Active Propylene Glycol 0.6 % solution Administer 1 drop into affected eye(s) 1 (one) time each day if needed Active triamcinolone (KENALOG) 0.025 % ointment Apply 1 application topically 1 (one) time each day Active buPROPion (WELLBUTRIN) 100 MG tablet 2 Active Active Problems Problem Noted Date Diagnosed Date Obese class II 05/08/2021 Hypertensive disorder 05/08/2021 Glaucoma 08/31/2020 Mass of pancreas 08/28/2020 Follicular lymphoma 08/28/2020 Overview (02/02/2024): Replacing diagnoses that were inactivated after the 02/02/24 Regulatory Import Depressive disorder 08/28/2020 Anxiety 08/28/2020 Gastroesophageal reflux disease 08/28/2020 Morbid obesity 08/28/2020 Impaired glucose tolerance 08/28/2020 Social History Tobacco Use Types Packs/Day Years Used Date Smoking Tobacco: Never Smokeless Tobacco: Never Alcohol Use Standard Drinks/Week Comments Not Currently 0 (1 standard drink = 0.6 oz pur e alcohol) stopped in 04/22 Sex and Gender Information Value Date Recorded Sex Assigned at Not on file Legal Sex Male 3:18 PM EDT Gender Identity Not on file Sexual Orientation Not on file Last Filed Vital Signs Vital Sign Reading Time Taken Comments Blood Pressure 135/87 05/08/2021 9:18 AM EST Pulse 78 05/08/2021 9:18 AM EST Temperature 36.3 ??C (97.3 ??F) 05/08/2021 9:18 AM ES T Respiratory Rate 16 05/08/2021 9:18 AM EST Oxygen Saturation 97% 05/08/2021 9:18 AM EST Inhaled Oxygen Concentration - - Weight 116 kg (255 lb) 05/08/2021 9:18 AM EST Height 172.7 cm (5' 8 ) 05/08/2021 9:18 AM EST Body Mass Index 38.77 05/08/2021 9:18 AM EST Plan of Treatment Health Maintenance Due Date Last Done Comments Colorectal Cancer Screening: Annual FOBT 01/13/2009 Colorectal Cancer Screening: Colonoscopy 01/13/2009 Colorectal Cancer Screening: Sigmoidoscopy 01/13/2009 Influenza Vaccine (#1) 2024 Pneumococcal Vaccine: Pediatrics (0 to 5 Years) and At-Risk Patients (6 to 64 Years) (3 of 3 - PPSV23 or PCV20) 11/29/2025 11/29/2020, 10/03/2020 Hepatitis B Vaccine Aged Out No longe r eligible based on patient's age to complete this topic Insurance [place] [address] [employer] Care Teams Electrical Accessories I Assembler Relationship Specialty Start Date End Date Keke Barnes MD [address] [place] [address] PCP - General Internal Medicine 08/28/20
--- OUTSIDE RECORDS SUMMARY | 2024-06-22 14:28 | XMS_ITS | Encounter Summary ---
Author Organization [facility], Address [address] [place] [address] Phone Care Team Providers Care Metal Building Assembler Name Role Phone Keke Barnes MD Primary Care Provider [phone] Encounter Details Date Type Department Care Team ([facility] st Contact Info) Description 08/30/2020 Telephone [facility] [address] [place] [address] Bindu Hahn [address] [place] [address] Social History Tobacco Use Types Packs/Day Years Used Date Smoking Tobacco: Never Assessed Sex and Gender Information Value Date Recorded Sex Assigned at Not on file Legal Sex Male 3:18 PM EDT Gender Identity Not on file Sexual Orientation Not on file COVID-19 Exposure Response Date Recorded In the last month, have you been in contact with someone who was confirmed or suspected to have Coronavirus / COVID-19? No / Unsure 08/31/2020 8:41 AM EDT documented as of this encounter Plan of Treatment Not on file documented as of this encounter Visit Diagnoses Not on filedocumented in this encounter Care Teams Metal Building Assembler Relationship Specialty Start Date End Date Keke Barnes MD [address] [place], [place] PCP - General Internal Medicine 08/28/20 documented as of this encounter
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
[2024-06-22 14:34] VITALS: BP 124/76; BMI 38.9
== END 2024-06-22 15:07 | disposition home or self-care (01) ==
PROVIDERS: PCP Internal Medicine; Visit Provider Internal Medicine
DX: Z00.00 Encounter for general adult medical examination without abnormal findings (principal); C82.89 Other types of follicular lymphoma, extranodal and solid organ sites; N52.1 Erectile dysfunction due to diseases classified elsewhere; L85.3 Xerosis cutis; F32.2 Major depressive disorder, single episode, severe without psychotic features

== ENCOUNTER → 2024-06-22 14:16 | Outpatient (BNVA) | payer OTHER, SELFPAY | PROVIDERS: PCP Internal Medicine; Visit Provider Internal Medicine | DX: Z00.00 Encounter for general adult medical examination without abnormal findings (principal); L85.3 Xerosis cutis; N52.1 Erectile dysfunction due to diseases classified elsewhere; C82.89 Other types of follicular lymphoma, extranodal and solid organ sites; F32.2 Major depressive disorder, single episode, severe without psychotic features | CPT/HCPCS: 96127; 99212; 99396 ==

== ENCOUNTER 2024-08-15 12:56 | Outpatient (AMB) | payer OTHER, SELFPAY ==
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
--- OUTSIDE RECORDS SUMMARY | 2024-08-15 14:49 | XMS_ITS | Encounter Summary ---
Author Organization [facility], Address [address] [place] [address] Phone Care Team Providers Care Plodding Operator Name Role Phone Keke Barnes MD Primary Care Provider Encounter Details Date Type Department Care Team ([facility] st Contact Info) Description 08/30/2020 Telephone [facility] - Vascular Access Center [address] [place] [address] Bindu Hahn [address] [place] [address] Social History Tobacco Use Types [...] on filedocumented in this encounter Care Teams Plodding Operator Relationship Specialty Start Date End Date Keke Barnes MD [address] [place], [place] PCP - General Internal Medicine 08/28/20 documented as of this encounter
--- OUTSIDE RECORDS SUMMARY | 2024-08-15 14:49 | XMS_ITS | Clinical Summary ---
Author Organization [facility], Address [address] [place] [address] Phone Care Team Providers Care Rn Angiography Name Role Phone Keke Barnes MD Primary Care Provider [phone] Allergies Active Allergy Reactions Criticality Noted Date [...] mouth 1 (one) time each day Active [place]-3 Fatty Acids (OMEGA-3 CF PO) Take by [...] Colorectal Cancer Screening: Sigmoidoscopy 01/13/2009 Influenza Vaccine (Season Ended) 2025 Pneumococcal Vaccine: 50+ Years (3 of 3 - PPSV23, PCV20 or PCV21) 11/29/2025 11/29/2020, 10/03/2020 Pneumococcal Vaccine: Peds ( 0 to 5 Years) and At-Risk Patients (6 to 49 Years) Discontinued 11/29/2020, 10/03/2020 Hepatitis B Vaccine Aged Out No longe r eligible based on patient's age to complete this topic Insurance [facility] Healthnet Care Teams Rn Angiography Relationship Specialty Start Date End Date Keke Barnes MD [address] [place] [address] PCP - General Internal Medicine 08/28/20
== END 2024-08-15 13:57 | disposition home or self-care (01) ==
PROVIDERS: PCP Internal Medicine; Visit Provider Nurse Practitioner Family
DX: E29.1 Testicular hypofunction (principal); N52.1 Erectile dysfunction due to diseases classified elsewhere; Z87.898 Personal history of other specified conditions
CPT/HCPCS: 99204

== ENCOUNTER → 2024-08-15 12:56 | Outpatient (BNVA) | payer OTHER, SELFPAY | PROVIDERS: PCP Internal Medicine; Visit Provider Nurse Practitioner Family | DX: E29.1 Testicular hypofunction (principal); N52.1 Erectile dysfunction due to diseases classified elsewhere; Z87.898 Personal history of other specified conditions | CPT/HCPCS: 51798; 81003; 99202 ==

== ENCOUNTER 2024-08-16 07:37 | Outpatient (REF) | payer OTHER, SELFPAY ==
--- OUTSIDE RECORDS SUMMARY | 2024-08-16 07:40 | XMS_ITS | Clinical Summary ---
Author Organization [facility], Address [address] [place] [address] Phone Care Team Providers Care Commutator Presser Name Role Phone Keke Barnes MD Primary Care Provider [phone] Allergies Active Allergy Reactions Criticality Noted Date [...] mouth 1 (one) time each day Active [place]-3 Fatty Acids (OMEGA-3 CF PO) Take by [...] patient's age to complete this topic Insurance [facility] Healthnet Care Teams Commutator Presser Relationship Specialty Start Date End Date Keke Barnes MD [address] [place] [address] PCP - General Internal Medicine 08/28/20
--- OUTSIDE RECORDS SUMMARY | 2024-08-16 07:40 | XMS_ITS | Encounter Summary ---
Author Organization [facility], Address [address] [place] [address] Phone Care Team Providers Care Auto Glass Technician Name Role Phone Keke Barnes MD Primary Care Provider [phone] Encounter Details Date Type Department Care Team ([facility] st Contact Info) Description 08/30/2020 Telephone [facility] - Vascular Access Center [address] [place] [address] Bindu Hahn [address] [place] [address] Social History Tobacco Use Types [...] on filedocumented in this encounter Care Teams Auto Glass Technician Relationship Specialty Start Date End Date Keke Barnes MD [address] [place], [place] PCP - General Internal Medicine 08/28/20 documented as of this encounter
[2024-08-16 08:59] LABS: Prostate Specific Antigen 0.89 ng/mL (<0.05-4.0)
[2024-08-21 12:24] LABS: Testosterone, Free 24.6 pg/mL (35.0-155.0); Testosterone, Total 221 ng/dL (250-1100)
== END 2024-08-16 07:38 | disposition home or self-care (01) ==
LOC: HO.LAB 07:37
PROVIDERS: Visit Provider Nurse Practitioner Family
DX: E29.1 Testicular hypofunction (principal); N52.1 Erectile dysfunction due to diseases classified elsewhere; Z87.898 Personal history of other specified conditions
CPT/HCPCS: 36415; 84153; 84402; 84403

== ENCOUNTER 2024-09-02 10:33 | Outpatient (AMB) | payer OTHER, SELFPAY ==
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
[2024-09-02 10:53] VITALS: BP 118/70; PULSE 72; O2SAT 96
--- OUTSIDE RECORDS SUMMARY | 2024-09-02 11:39 | XMS_ITS | Clinical Summary ---
Author Organization [facility], Address [address] [place] [address] Phone Care Team Providers Care News Editor Name Role Phone Keke Barnes MD Primary Care Provider [phone] Allergies Active Allergy Reactions Criticality Noted Date [...] mouth 1 (one) time each day Active [place]-3 Fatty Acids (OMEGA-3 CF PO) Take by [...] patient's age to complete this topic Insurance [facility] Healthnet Care Teams News Editor Relationship Specialty Start Date End Date Keke Barnes MD [address] [place] [address] PCP - General Internal Medicine 08/28/20
--- OUTSIDE RECORDS SUMMARY | 2024-09-02 11:39 | XMS_ITS | Encounter Summary ---
Author Organization [facility], Address [address] [place] [address] Phone Care Team Providers Care Paint Department Supervisor Name Role Phone Keke Barnes MD Primary Care Provider [phone] Encounter Details Date Type Department Care Team ([facility] st Contact Info) Description 08/30/2020 Telephone [facility] - Vascular Access Center [address] [place] [address] Bindu Hahn [address] [place] [address] Social History Tobacco Use Types [...] on filedocumented in this encounter Care Teams Paint Department Supervisor Relationship Specialty Start Date End Date Keke Barnes MD [address] [place], [place] PCP - General Internal Medicine 08/28/20 documented as of this encounter
== END 2024-09-02 11:43 | disposition home or self-care (01) ==
PROVIDERS: PCP Internal Medicine; Visit Provider Physician Assistant
DX: M54.42 Lumbago with sciatica, left side (principal); M54.41 Lumbago with sciatica, right side

== ENCOUNTER → 2024-09-02 10:33 | Outpatient (BNVA) | payer OTHER, SELFPAY | PROVIDERS: PCP Internal Medicine; Visit Provider Physician Assistant | DX: M54.42 Lumbago with sciatica, left side (principal); M54.41 Lumbago with sciatica, right side | CPT/HCPCS: 99212 ==

== ENCOUNTER 2024-10-14 08:59 | Outpatient (AMB) | payer OTHER, SELFPAY ==
[2024-10-14 09:21] VITALS: BMI 38.9
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
--- OUTSIDE RECORDS SUMMARY | 2024-10-14 09:23 | XMS_ITS | Encounter Summary ---
Author Organization [facility], Address [address] [place] [address] Phone Care Team Providers Care Shank Scourer Name Role Phone Keke Barnes MD Primary Care Provider [phone] Encounter Details Date Type Department Care Team ([facility] st Contact Info) Description 08/30/2020 Telephone [facility] - [facility] [address] [place] [address] Bindu Hahn [address] [place] [address] Social History Tobacco Use Types [...] on filedocumented in this encounter Care Teams Shank Scourer Relationship Specialty Start Date End Date Keke Barnes MD [address] [place], [place] PCP - General Internal Medicine 08/28/20 documented as of this encounter
== END 2024-10-14 09:57 | disposition home or self-care (01) ==
LOC: HO.HOS 09:00
PROVIDERS: PCP Internal Medicine; Visit Provider Physician Assistant
DX: M17.11 Unilateral primary osteoarthritis, right knee (principal)
CPT/HCPCS: 20610; 99213

== ENCOUNTER → 2024-10-14 08:59 | Outpatient (BNVA) | payer OTHER, SELFPAY | PROVIDERS: PCP Internal Medicine; Visit Provider Physician Assistant | DX: M17.11 Unilateral primary osteoarthritis, right knee (principal); M25.561 Pain in right knee | CPT/HCPCS: 20610; 99212; J1010; J2003 ==

== ENCOUNTER 2024-10-20 08:17 | Outpatient (AMB) | payer OTHER, SELFPAY ==
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
[2024-10-20 08:23] VITALS: BP 113/64; PULSE 86; O2SAT 96; BMI 37.4
--- OUTSIDE RECORDS SUMMARY | 2024-10-20 08:24 | XMS_ITS | Encounter Summary ---
Author Organization [facility], Address [address] [place] [address] Phone Care Team Providers Care Cloth Grader Supervisor Name Role Phone Keke Barnes MD Primary Care Provider [phone] Encounter Details Date Type Department Care Team ([facility] st Contact Info) Description 08/30/2020 Telephone [facility] - [facility] [address] [place] [address] Bindu Hahn [address] [place] [address] Social History Tobacco Use Types [...] on filedocumented in this encounter Care Teams Cloth Grader Supervisor Relationship Specialty Start Date End Date Keke Barnes MD [address] [place], [place] PCP - General Internal Medicine 08/28/20 documented as of this encounter
== END 2024-10-20 09:14 | disposition home or self-care (01) ==
PROVIDERS: PCP Internal Medicine; Visit Provider Internal Medicine Gastroenterology
DX: K57.90 Diverticulosis of intestine, part unspecified, without perforation or abscess without bleeding (principal); R74.01 Elevation of levels of liver transaminase levels; K21.9 Gastro-esophageal reflux disease without esophagitis; K76.0 Fatty (change of) liver, not elsewhere classified; Z86.0100 Personal history of colon polyps, unspecified
CPT/HCPCS: 99213

== ENCOUNTER → 2024-10-20 08:17 | Outpatient (BNVA) | payer OTHER, SELFPAY | PROVIDERS: PCP Internal Medicine; Visit Provider Internal Medicine Gastroenterology | DX: K21.9 Gastro-esophageal reflux disease without esophagitis (principal); R74.01 Elevation of levels of liver transaminase levels; K57.90 Diverticulosis of intestine, part unspecified, without perforation or abscess without bleeding; K76.0 Fatty (change of) liver, not elsewhere classified; Z86.0100 Personal history of colon polyps, unspecified | CPT/HCPCS: 99212 ==

== ENCOUNTER 2024-11-01 09:55 | Outpatient (REF) | payer OTHER, SELFPAY ==
--- NOTE | ~2024-11-01 | US_ITS ---
CLINICAL HISTORY: Z87.898 - HX OF URINARY FREQUENCY US of kidneys Comparison: None Findings: Right kidney is normal in size, echogenicity and morphology, 11.0 cm in length. No calculus, mass, or hydronephrosis. Left kidney is normal in size, echogenicity and morphology, 11.2 cm in length. No calculus or hydronephrosis. Intrarenal avascular hypoechoic/anechoic lesion with slightly increased through transmission in the lower interpolar region, not well seen due to adjacent shadowing, 1.2 x 1.5 x 1.2 cm. Limited color Doppler demonstrates unremarkable bilateral blood flow. Impression: 1. Left renal avascular cyst 1.5 cm, mixed echogenicity could be artifactual or related to complexity of cystic content, recommend comparison with previous cross-sectional exam if available, otherwise renal MRI or CT without and with IV contrast will be helpful for further evaluation. 2. Otherwise, normal. This document has been electronically signed by: Nissa Reynolds MD on 11/03/2024 09:27:40
--- OUTSIDE RECORDS SUMMARY | 2024-11-01 10:53 | XMS_ITS | Encounter Summary ---
Author Organization [facility], Address [address] [place] [address] Phone Care Team Providers Care Head Grease Maker Name Role Phone Keke Barnes MD Primary Care Provider [phone] Encounter Details Date Type Department Care Team ([facility] st Contact Info) Description 08/30/2020 Telephone [facility] - [facility] Center [address] [place] [address] Bindu Hahn [address] [place] [address] Social History Tobacco Use Types [...] on filedocumented in this encounter Care Teams Head Grease Maker Relationship Specialty Start Date End Date Keke Barnes MD [address] [place], [place] PCP - General Internal Medicine 08/28/20 documented as of this encounter
== END 2024-11-01 09:56 | disposition home or self-care (01) ==
LOC: HO.US 09:55
PROVIDERS: PCP Internal Medicine; Visit Provider Nurse Practitioner Family
DX: Z87.898 Personal history of other specified conditions (principal)
CPT/HCPCS: 76775

== ENCOUNTER → 2024-11-01 09:57 | Outpatient (BNV) | payer OTHER, SELFPAY | PROVIDERS: PCP Internal Medicine; Visit Provider Radiology Diagnostic Radiology | DX: N28.1 Cyst of kidney, acquired (principal) | CPT/HCPCS: 76775 ==

== ENCOUNTER 2024-11-15 11:35 | Outpatient (AMB) | payer OTHER, SELFPAY ==
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
--- OUTSIDE RECORDS SUMMARY | 2024-11-15 12:56 | XMS_ITS | Encounter Summary ---
Author Organization [facility], Address [address] [place] [address] Phone Care Team Providers Care Miter Sawyer Name Role Phone Keke Barnes MD Primary Care Provider [phone] Encounter Details Date Type Department Care Team ([facility] st Contact Info) Description 08/30/2020 Telephone [facility] - [facility] [address] [place] [address] Bindu Hahn [address] [place] [address] Social History Tobacco Use Types [...] on filedocumented in this encounter Care Teams Miter Sawyer Relationship Specialty Start Date End Date Keke Barnes MD [address] [place], [place] PCP - General Internal Medicine 08/28/20 documented as of this encounter
--- OUTSIDE RECORDS SUMMARY | 2024-11-15 12:57 | XMS_ITS | Patient Health Record ---
Author Organization [facility] Address [address] [place] [address] Care Team Providers Care Recycling Specialist Name Role Phone Keke Barnes Primary Care Provider Judson Orellana Jr Unavailable Reason For Referral No Information Medications Medication SIG (Take, Route, Frequency, Duration) Notes Start Date End Date Status Omeprazole 20 MG 1 capsule Orally Onc e a day Active Lisinopril 2.5 MG Orally Ac tive Colyte with Flavor Packs 240 GM As directed Orally Over the specified time. 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 (Z79.82) Active confirmed Plan Of Treatment Future Test Test Name Order Date COLONOSCOPY 05/23/2016 Insurance Providers Payer Name Payer Address Payer Phone Subscriber Number Group Number Insured Name Patient Relationship to Insured Coverage Start Date Coverage End Date [facility] [facility] [address] [address] [place], [place] [id number] L[employer]T Self - patient is the insured [place] [address] [place] [address] [id number] [employer] Self - patient is the insured Medical (General) History Medical History History ICD Code hypertension esophageal reflux back pain depression diabetes Surgical History Surgery Date(Month/Year) tonsillectomy
== END 2024-11-15 12:22 | disposition home or self-care (01) ==
LOC: HO.HUSH 11:35
PROVIDERS: PCP Internal Medicine; Visit Provider Nurse Practitioner Family
DX: N28.1 Cyst of kidney, acquired (principal); E29.1 Testicular hypofunction; N52.1 Erectile dysfunction due to diseases classified elsewhere; Z87.898 Personal history of other specified conditions; Z13.9 Encounter for screening, unspecified
CPT/HCPCS: 99213; G2211

== ENCOUNTER → 2024-11-15 11:35 | Outpatient (BNVA) | payer OTHER, SELFPAY | PROVIDERS: PCP Internal Medicine; Visit Provider Nurse Practitioner Family | DX: E29.1 Testicular hypofunction (principal); N52.1 Erectile dysfunction due to diseases classified elsewhere; N28.1 Cyst of kidney, acquired; Z87.898 Personal history of other specified conditions | CPT/HCPCS: 51798; 81003; 99212 ==

== ENCOUNTER 2024-12-28 08:37 | Outpatient (AMB) | payer OTHER, SELFPAY ==
[2024-12-28 08:39] VITALS: BP 116/68; PULSE 76; O2SAT 95; BMI 38.5
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
--- OUTSIDE RECORDS SUMMARY | 2024-12-28 09:00 | XMS_ITS | Clinical Summary ---
Author Organization [facility], Address [address] [place] [address] Phone Care Team Providers Care Railroad Cook Name Role Phone Keke Barnes MD Primary Care Provider [phone] Allergies Active Allergy Reactions Criticality Noted Date [...] mouth 1 (one) time each day Active [place]-3 Fatty Acids (OMEGA-3 CF PO) Take by [...] 78 05/08/2021 9:18 AM EST Temperature 36.3 C (97.3 F) 05/08/2021 9:18 AM EST Respiratory Rate 16 05/08/2021 9:18 AM EST [...] Cancer Screening: Sigmoidoscopy 01/13/2009 Influenza Vaccine (#1) 2025 Pneumococcal Vaccine: 50+ Years (3 of 3 - PCV20 or PCV21) 11/29/2025 11/29/2020, 10/03/2020 Pneumococcal Vaccine: Peds ( 0 to 5 Years) and At-Risk Patients (6 to 49 Years) Discontinued 11/29/2020, 10/03/2020 Hepatitis B Vaccine Aged Out No longe r eligible based on patient's age to complete this topic Insurance [facility] Healthnet Care Teams Railroad Cook Relationship Specialty Start Date End Date Keke Barnes MD [address] [place] [address] PCP - General Internal Medicine 08/28/20
--- OUTSIDE RECORDS SUMMARY | 2024-12-28 09:00 | XMS_ITS | Encounter Summary ---
Author Organization [facility], Address [address] [place] [address] Phone Care Team Providers Care Rubber Grinder Name Role Phone Keke Barnes MD Primary Care Provider [phone] Encounter Details Date Type Department Care Team ([facility] st Contact Info) Description 08/30/2020 Telephone [facility] - [facility] [address] [place] [address] Bindu Hahn [address] [place] [address] Social History Tobacco Use Types [...] on filedocumented in this encounter Care Teams Rubber Grinder Relationship Specialty Start Date End Date Keke Barnes MD [address] [place], [place] PCP - General Internal Medicine 08/28/20 documented as of this encounter
== END 2024-12-28 09:02 | disposition home or self-care (01) ==
LOC: HO.HMCH 08:38
PROVIDERS: PCP Internal Medicine; Visit Provider Internal Medicine
DX: F33.1 Major depressive disorder, recurrent, moderate (principal); C82.89 Other types of follicular lymphoma, extranodal and solid organ sites; E66.9 Obesity, unspecified; Z68.38 Body mass index [BMI] 38.0-38.9, adult; K21.9 Gastro-esophageal reflux disease without esophagitis; E29.1 Testicular hypofunction; N28.1 Cyst of kidney, acquired; G62.9 Polyneuropathy, unspecified

== ENCOUNTER → 2024-12-28 08:37 | Outpatient (BNVA) | payer OTHER, SELFPAY | PROVIDERS: PCP Internal Medicine; Visit Provider Internal Medicine | DX: K21.9 Gastro-esophageal reflux disease without esophagitis (principal); E66.9 Obesity, unspecified; G62.9 Polyneuropathy, unspecified; F33.1 Major depressive disorder, recurrent, moderate; E29.1 Testicular hypofunction; C82.89 Other types of follicular lymphoma, extranodal and solid organ sites; N28.1 Cyst of kidney, acquired; E66.812 Obesity, class 2; Z68.38 Body mass index [BMI] 38.0-38.9, adult | CPT/HCPCS: 96127; 99212 ==

== ENCOUNTER 2025-01-19 09:52 | Outpatient (REF) | payer MEDICARE, MEDICAID, SELFPAY ==
--- NOTE | ~2025-01-19 | US_ITS ---
CLINICAL HISTORY: URINARY US Urinary Bladder Comparison: None Findings: The bladder wall is unremarkable. Prevoid volume: 476 mL. Postvoid volume: 69 mL Ureteral jets are visualized bilaterally. Prostate volume is estimated at 21 mL. IMPRESSION: Mild postvoid residual within the urinary bladder. This document has been electronically signed by: Kendra Ball MD on 01/19/2025 18:09:09
--- OUTSIDE RECORDS SUMMARY | 2025-01-19 11:33 | XMS_ITS | Clinical Summary ---
Author Organization [facility], Address [address] [place] [address] Phone Care Team Providers Care Microbiology Technician Name Role Phone Keke Barnes MD Primary Care Provider [phone] Allergies Active Allergy Reactions Criticality Noted Date [...] mouth 1 (one) time each day Active [place]-3 Fatty Acids (OMEGA-3 CF PO) Take by [...] patient's age to complete this topic Insurance [facility] Healthnet Care Teams Microbiology Technician Relationship Specialty Start Date End Date Keke Barnes MD [address] [place] [address] PCP - General Internal Medicine 08/28/20
--- OUTSIDE RECORDS SUMMARY | 2025-01-19 11:33 | XMS_ITS | Encounter Summary ---
Author Organization [facility], Address [address] [place] [address] Phone Care Team Providers Care Wool Handler Name Role Phone Keke Barnes MD Primary Care Provider [phone] Encounter Details Date Type Department Care Team ([facility] st Contact Info) Description 08/30/2020 Telephone [facility] - [facility] Center [address] [place] [address] Bindu Hahn [address] [place] [address] Social History Tobacco Use Types [...] on filedocumented in this encounter Care Teams Wool Handler Relationship Specialty Start Date End Date Keke Barnes MD [address] [place], [place] PCP - General Internal Medicine 08/28/20 documented as of this encounter
== END 2025-01-19 09:53 | disposition home or self-care (01) ==
LOC: HO.HMGCX 09:52
PROVIDERS: PCP Internal Medicine; Visit Provider Nurse Practitioner Family
DX: Z87.898 Personal history of other specified conditions (principal)
CPT/HCPCS: 76857

== ENCOUNTER → 2025-01-19 10:00 | Outpatient (BNV) | payer MEDICARE, MEDICAID, SELFPAY | PROVIDERS: PCP Internal Medicine; Visit Provider Radiology Diagnostic Radiology | DX: R33.8 Other retention of urine (principal) | CPT/HCPCS: 76857 ==

== ENCOUNTER 2025-02-14 08:58 | Outpatient (REF) | payer MEDICARE, MEDICAID, SELFPAY ==
--- NOTE | 2025-02-14 09:02 | EMG_ITS ---
Chief complaint: Pain and numbness of leg and feet Reason for referral: G62.9 Neuropathy of both feet Referred by: Keke Gómez MD Procedure done: Bilateral lower extremities NCS/ EMG Bilateral tibial and peroneal motor studies were performed. Tibial H reflexes were obtained. Bilateral superficial peroneal and sural sensory studies were performed an EMG needle examination was performed. Sensory studies revealed mild reduction of conduction velocity while right sural response was absent. In motor studies, left peroneal amplitudes were mildly reduced with both peroneal showing mild slowing across fibular head. 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
--- OUTSIDE RECORDS SUMMARY | 2025-02-14 09:35 | XMS_ITS | Encounter Summary ---
Author Organization [facility], Address [address] [place] [address] Phone Care Team Providers Care Associate Dean Of Women Name Role Phone Keke Barnes MD Primary Care Provider [phone] Encounter Details Date Type Department Care Team ([facility] st Contact Info) Description 08/30/2020 Telephone [facility] - [facility] Center [address] [place] [address] Bindu Hahn [address] [place] [address] Social History Tobacco Use Types [...] on filedocumented in this encounter Care Teams Associate Dean Of Women Relationship Specialty Start Date End Date Keke Barnes MD [address] [place], [place] PCP - General Internal Medicine 08/28/20 documented as of this encounter
--- OUTSIDE RECORDS SUMMARY | 2025-02-14 09:35 | XMS_ITS | Clinical Summary ---
Author Organization [facility], Address [address] [place] [address] Phone Care Team Providers Care Exhaust Emissions Inspector Name Role Phone Keke Barnes MD Primary Care Provider [phone] Allergies Active Allergy Reactions Criticality Noted Date [...] mouth 1 (one) time each day Active [place]-3 Fatty Acids (OMEGA-3 CF PO) Take by [...] patient's age to complete this topic Insurance [facility] Healthnet Care Teams Exhaust Emissions Inspector Relationship Specialty Start Date End Date Keke Barnes MD [address] [place] [address] PCP - General Internal Medicine 08/28/20
== END 2025-02-14 08:59 | disposition home or self-care (01) ==
LOC: HO.NEURO 08:58
PROVIDERS: PCP Internal Medicine; Visit Provider Internal Medicine
DX: G62.9 Polyneuropathy, unspecified (principal); R20.0 Anesthesia of skin; M79.671 Pain in right foot; M79.672 Pain in left foot
CPT/HCPCS: 95886; 95911

== ENCOUNTER → 2025-02-14 09:02 | Outpatient (BNV) | payer MEDICARE, MEDICAID, SELFPAY | PROVIDERS: PCP Internal Medicine; Visit Provider Psychiatry & Neurology Neurology | DX: G62.89 Other specified polyneuropathies (principal) | CPT/HCPCS: 95886; 95911 ==

== ENCOUNTER 2025-03-27 09:20 | Outpatient (AMB) | payer MEDICARE, MEDICAID, SELFPAY ==
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
[2025-03-27 09:49] VITALS: BP 118/70; PULSE 74; O2SAT 97; BMI 38.0
--- OUTSIDE RECORDS SUMMARY | 2025-03-27 10:28 | XMS_ITS | Encounter Summary ---
Author Organization [facility], Address [address] [place] [address] Phone Care Team Providers Care Utility System Operator Name Role Phone Keke Barnes MD Primary Care Provider [phone] Encounter Details Date Type Department Care Team ([facility] Contact Info) Description 08/30/2020 Telephone [facility] - [facility] [address] [place] [address] Bindu Hahn [address] [place] [address] Social History Tobacco Use Types [...] AM EDT documented as of this encounter Functional Status * Question Answer Date of Assessment Author BP 136/90 08/31/2020 9:21 AM EDT Kitty Guillaume Temp 98.2 08/31/2020 9:21 AM EDT GuillaumeKitty hdez Temp src Oral 08/31/2020 9:21 AM EDT Kitty Brand Pulse 76 08/31/2020 9:21 AM EDT Kitty Guillaume Resp 16 08/31/2020 9:21 AM EDT Kitty Guillaume SpO2 95 08/31/2020 9:21 AM EDT Kitty Guillaume Height 68 08/31/2020 9:21 AM EDKitty Staton Weight 3920 08/31/2020 9:21 AM Kitty Smiley * BMI (Calculated) Answer Date of Assessment Author 37.3 08/31/2020 9:21 AM Clara Smiley nn * BP Location Answer Date of Assessment Author Right upper arm 08/31/2020 9:21 AM Clara Smiley nn * Question Answer Date of Assessment Author BP 136/90 08/31/2020 9:21 AM Kitty Smiley Height 68 08/31/2020 9:21 AM EDKitty Staton Weight 3920 08/31/2020 9:21 AM Kitty Smiley * BMI (Calculated) Answer Date of Assessment Author 37.3 08/31/2020 9:21 AM Clara Smiley nn * BP Location Answer Date of Assessment Author Right upper arm 08/31/2020 9:21 AM Clara Smiley documented as of this encounter Plan of Treatment Not on file documented as of this encounter Visit Diagnoses Not on filedocumented in this encounter Care Teams Utility System Operator Relationship Specialty Start Date End Date Keke Barnes MD [address] [facility] [address] [place] [address] PCP - General Internal Medicine 08/28/20 documented as of this encounter
--- OUTSIDE RECORDS SUMMARY | 2025-03-27 10:28 | XMS_ITS | Clinical Summary ---
Author Organization [facility], Address [address] [place] [address] Phone Care Team Providers Care Making Line Worker Name Role Phone Keke Barnes MD Primary Care Provider [phone] Allergies Active Allergy Reactions Criticality Noted Date [...] mouth 1 (one) time each day Active [place]-3 Fatty Acids (OMEGA-3 CF PO) Take by [...] patient's age to complete this topic Insurance [facility] [employer] Care Teams Making Line Worker Relationship Specialty Start Date End Date Keke Barnes MD [address] [place] [address] PCP - General Internal Medicine 08/28/20
== END 2025-03-27 10:28 | disposition home or self-care (01) ==
PROVIDERS: PCP Internal Medicine; Visit Provider Nurse Practitioner Family
DX: M54.16 Radiculopathy, lumbar region (principal)

== ENCOUNTER → 2025-03-27 09:20 | Outpatient (BNVA) | payer OTHER, SELFPAY | PROVIDERS: PCP Internal Medicine; Visit Provider Nurse Practitioner Family | DX: M54.16 Radiculopathy, lumbar region (principal) | CPT/HCPCS: 99212 ==

== ENCOUNTER 2025-04-28 09:24 | Outpatient (REF) | payer OTHER, SELFPAY ==
--- OUTSIDE RECORDS SUMMARY | 2025-04-28 09:27 | XMS_ITS | Clinical Summary ---
Author Organization [facility], Address [address] [place] [address] Phone Care Team Providers Care Cashier Credit Name Role Phone Keke Barnes MD Primary Care Provider [phone] Allergies Active Allergy Reactions Criticality Noted Date [...] mouth 1 (one) time each day Active [place]-3 Fatty Acids (OMEGA-3 CF PO) Take by [...] patient's age to complete this topic Insurance [facility] Health[employer] Care Teams Cashier Credit Relationship Specialty Start Date End Date Keke Barnes MD [address] [place] [address] PCP - General Internal Medicine 08/28/20
--- OUTSIDE RECORDS SUMMARY | 2025-04-28 09:27 | XMS_ITS | Encounter Summary ---
Author Organization [facility], Address [address] [place] [address] Phone Care Team Providers Care Medical Lab Specialist Name Role Phone Keke Barnes MD Primary Care Provider [phone] Encounter Details Date Type Department Care Team ([facility] st Contact Info) Description 08/30/2020 Telephone [facility] - [facility] [address] [place] [address] Bindu Hahn [address] [place] [address] Social History Tobacco Use Types [...] on filedocumented in this encounter Care Teams Medical Lab Specialist Relationship Specialty Start Date End Date Keke Barnes MD [address] [place], [place] PCP - General Internal Medicine 08/28/20 documented as of this encounter
[2025-05-02 14:33] LABS: Testosterone, Free 30.0 pg/mL (35.0-155.0)
== END 2025-04-28 09:25 | disposition home or self-care (01) ==
LOC: HO.LAB 09:24
PROVIDERS: PCP Internal Medicine; Visit Provider Nurse Practitioner Family
DX: E29.1 Testicular hypofunction (principal)
CPT/HCPCS: 36415; 84402; 84403